=== PATIENT | female | born 1965 | race Two or more races ===

== ENCOUNTER 2017-07-20 17:41 | Emergency (ER) | payer MEDICAID ==
[~2017-07-20] VITALS: Ht 165.1 cm; Wt 167.8 kg
[2017-07-20 18:13] VITALS: BP 147/88
[2017-07-20] MEDS ORDERED: COLACE100 MG ORAL (18:24)
[2017-07-20] MEDS ORDERED: HYDROCHLOROTHIA25 MG ORAL (18:24)
--- NOTE | 2017-07-20 18:40 | Emergency Room Report ---
History of Present Illness General Chief Complaint: General Complaint Source: Patient Present Illness HPI Patient is a 52-year-old female who presented after increased bilateral knee pain. Patient was having gradual onset of symptoms. Patient prior history of this. She had previous a been told that she had a abdominal hernia. The patient was the not having any vomiting. She reports having the increasing size of upper abdominal mass. The patient had been having regular bowel movements. Patient states that she had been not having any change in symptoms. Allergies: Coded Allergies: No Known Allergies (Unverified , 07/20/17) Patient History Reviewed Nursing Documentation: PMH: Agreed; PSxH: Agreed Nursing Documentation-PM Past Medical History: No Stated History Review of Systems All Other Systems: negative except mentioned in HPI Physical Exam Vital Signs Date Time Temp Pulse Resp B/P (MAP) Pulse Ox O2 Delivery O2 Flow Rate FiO2 07/20/17 18:05 98.3 89 22 147/88 91 Room Air 98.2 General Appearance: well appearing, no apparent distress, GCS 15, obese, Chronically Ill Head: normocephalic, atraumatic ENT: hearing grossly normal, normal voice Neck: full range of motion, supple Respiratory: no respiratory distress, speaking full sentences Cardiovascular #1: normal inspection, edema Gastrointestinal: normal inspection, normal bowel sounds, non tender, soft Musculoskeletal: normal inspection, no calf tenderness Neurologic: normal inspection, alert, oriented x3, responsive, auricular acupuncturist III-XII nml as tested, normal gait Psychiatric: mood/affect normal Skin: no rash Medical Decision Making Diagnostic Impression: Primary Impression: Arthritis Additional Impression: Abdominal pain ER Course Patient presented for abdominal pain. Differential diagnoses included ischemic bowel, appendicitis, perforated viscus, abdominal aortic aneurysm, inferior myocardial infarction, viral gastroenteritis. Patient has a benign exam and does not appear to require any further imaging or laboratory testing at this time. The patient's pain appears to be chronic. The patient appears to have chronic abdominal wall hernia which does not appear to be incarcerated or strangulated.The patient denies any change in her symptoms. Patient was given prescription for hydrochlorothiazideShe was also given for stool softeners. The patient was given outpatient referral. The patient was advised to attempt weight loss for her arthritis. The patient is advised to follow up with primary care doctor in 1-2 days. Patient is advised to return if any worsening condition or if any changes in status that are concerning. This report is dictated with [employer] cloth checker software which may occasionally lead to discrepancies related to use of this software. Last Vital Signs Date Time Temp Pulse Resp B/P (MAP) Pulse Ox O2 Delivery O2 Flow Rate FiO2 07/20/17 18:13 98.2 22 147/88 91 Room Air 98.2 07/20/17 18:05 89 Status: unchanged Disposition: HOME, SELF-CARE Condition: Stable Scripts Hydrochlorothiazide* (HYDROCHLOROTHIAZIDE*) 25 Mg Tablet 25 MG ORAL DAILY, #28 TAB Prov: David Perez MD 07/20/17 Docusate Sodium* (COLACE*) 100 Mg Capsule 100 MG ORAL TWICE A DAY, #60 CAP Prov: David Perez MD 07/20/17 Patient Instructions: Abdominal Pain, Adult, Hypertension David Perez MD Jul 20, 2017 18:40
[2017-07-20 18:58] VITALS: BP 147/88
== END 2017-07-20 18:59 | disposition home or self-care (01) ==
LOC: EMR 18:22
DX: R10.9 Unspecified abdominal pain (principal); M25.562 Pain in left knee; M25.561 Pain in right knee; M19.90 Unspecified osteoarthritis, unspecified site; E66.9 Obesity, unspecified; Z68.44 Body mass index [BMI] 60.0-69.9, adult
CPT/HCPCS: 99284

== ENCOUNTER 2017-07-25 18:51 | Emergency (ER) | payer MEDICAID ==
[~2017-07-25] VITALS: Ht 165.1 cm; Wt 145.1 kg
[~2017-07-25 18:51] MED LIST: COLACE100 MG ORAL; HYDROCHLOROTHIA25 MG ORAL
[2017-07-25 19:22] VITALS: BP 77/103
[2017-07-25] MEDS ORDERED: Tetanus/Diptheria/Pertussis Vaccine 0.5ml Syr IM ONE (19:45)
--- NOTE | 2017-07-25 19:53 | Emergency Room Report ---
History of Present Illness General Chief Complaint: Skin Rash/Abscess Source: Patient Present Illness HPI 52-year-old female presents emergency department for treatment for possible scabies as one of her also told members was recently diagnosed with scabies. Patient denies insect bites, itching, rashes. She denies fevers or chills. Denies recent travel. She states he is not up-to-date with his tetanus and needs booster. Denies CP, Palpitations, LOC, AMS, dizziness, Changes in Vision , Sensation, paresthesias, or a sudden severe headache. Allergies: Coded Allergies: No Known Allergies (Unverified , 07/20/17) Patient History Past Medical History: see triage record Past Surgical History: none Pertinent Family History: none Reviewed Nursing Documentation: PMH: Agreed; PSxH: Agreed Nursing Documentation-PMH Hx Hypertension: Yes Review of Systems All Other Systems: negative except mentioned in HPI Physical Exam Vital Signs Date Time Temp Pulse Resp B/P (MAP) Pulse Ox O2 Delivery O2 Flow Rate FiO2 07/25/17 19:12 98.5 85 15 77/103 96 Room Air 98.4 Sp02 EP Interpretation: reviewed, normal General Appearance: no apparent distress, alert, GCS 15, non-toxic Head: normocephalic, atraumatic Eyes: bilateral eye normal inspection, bilateral eye PERRL ENT: hearing grossly normal, no angioedema, normal voice, other - no swelling of the lips or tongue Neck: full range of motion Respiratory: chest non-tender, lungs clear, normal breath sounds, no rhonchi, no wheezing, speaking full sentences Cardiovascular #1: regular rate, rhythm Musculoskeletal: back normal, gait/station normal, normal range of motion, non- tender Neurologic: alert, oriented x3, responsive, motor strength/tone normal, sensory intact, speech normal, grossly normal Psychiatric: judgement/insight normal Skin: normal color, no rash, warm/dry, well hydrated Lymphatic: no adenopathy Medical Decision Making PA Attestation Dr. dias is my supervising Physician whom patient management has been discussed with. Diagnostic Impression: Primary Impression: Encounter for medical screening examination ER Course 52-year-old female presents emergency department for treatment for possible scabies as one of her also told members was recently diagnosed with scabies. Patient denies insect bites, itching, rashes. She denies fevers or chills. Denies recent travel. She states he is not up-to-date with his tetanus and needs booster. Denies CP, Palpitations, LOC, AMS, dizziness, Changes in Vision , Sensation, paresthesias, or a sudden severe headache. Ddx considered but are not limited to cellulitis, scabies, shingles, varicella, dermatitis, urticaria, eczema, tinea, viral exanthem, SJS Vital signs: are WNL, pt. is afebrile H&PE are most consistent with Normal medical Screening Exam. no evidence of rash ,infection, infestation or anaphylaxis. ORDERS: none required at this time, the diagnosis is clinical ED INTERVENTIONS: -Tdap -D/w pt. and family members who are all present that prophylactic treatment is inappropriate for an ED complaint. d/w Family member "Agatha" who made pt. and other family members come to the ED, and checked in herself as well That she needs to follow up with PCP, Certification Technician, or [facility]. Respectfully did not mention psych. however parasitosis is a very likely diagnosis. DISCHARGE: At this time pt. is stable for d/c to home. Will provide printed patient care instructions, and any necessary prescriptions. Care plan and follow up instructions have been discussed with the patient prior to discharge. Last Vital Signs Date Time Temp Pulse Resp B/P (MAP) Pulse Ox O2 Delivery O2 Flow Rate FiO2 07/25/17 19:22 98.4 15 77/103 96 Room Air 98.4 07/25/17 19:12 85 Disposition: HOME, SELF-CARE Condition: Stable Scripts Permethrin* (ELIMITE*) 60 Gm Cream..g. 1 APPLIC TOPIC ONCE, #60 GM 0 Refills Apply cream from head to toe; leave on for 8-14 hours before washing off with water; may reapply in 1 week if live mites appear. Prov: Stephanie Yañez 07/25/17 Ivermectin (Ivermectin) 3 Mg Tablet 4 TAB PO ONCE, #4 TAB Prov: Stephanie Yañez 07/25/17 Patient Instructions: Medical Screening Exam Additional Instructions: Take medications as directed. Follow up with a Primary Care Provider in 3-5 days, even if your symptoms have resolved. --Please review list of primary care clinics, if you do not already have a primary care provider Return sooner to ED if new symptoms occur, or current symptoms become worse. - Please note that this Emergency Department Report was dictated using Your [employer] Show[employer] manager technology software, occasionally this can lead to erroneous entry secondary to interpretation by the dictation equipment. Stephanie Yañez Jul 25, 2017 19:53
[2017-07-25] MEDS ORDERED: PERMETHRIN60 GM TOPIC (19:54)
[2017-07-25] MEDS ORDERED: IVERMECTIN3 MG PO (19:54)
[2017-07-25 20:05] VITALS: BP 77/103
== END 2017-07-25 20:05 | disposition home or self-care (01) ==
LOC: EMR 19:05
DX: Z20.89 Contact with and (suspected) exposure to other communicable diseases (principal); Z23 Encounter for immunization; I10 Essential (primary) hypertension
CPT/HCPCS: 90471; 90715; 99283

== ENCOUNTER 2017-09-21 18:00 | Emergency (ER) | payer MEDICAID ==
[~2017-09-21] VITALS: Ht 162.6 cm; Wt 136.1 kg
[~2017-09-21 18:00] MED LIST changes: +IVERMECTIN3 MG PO; +PERMETHRIN60 GM TOPIC
[2017-09-21] MEDS ORDERED: UNOBMED (18:13)
--- NOTE | 2017-09-21 18:56 | Emergency Room Report ---
History of Present Illness General Chief Complaint: Edema Source: Patient Present Illness HPI 52-year-old female presents ED for evaluation. Complaining of bilateral leg swelling times one week. History of hypertension. States she takes losartanhydrochlorothiazide pill but states she ran out one week ago. States she has had episodes of shortness of breath but none at this time. Denies chest pain. Denies fevers or chills. Denies any pain in her legs. No other aggravating relieving factors. Denies any other associated symptoms Allergies: Coded Allergies: No Known Allergies (Unverified , 07/20/17) Patient History Past Medical History: HTN Past Surgical History: none Pertinent Family History: none Social History: Denies: smoking, alcohol use, drug use Now: No Immunizations: UTD Reviewed Nursing Documentation: PMH: Agreed; PSxH: Agreed Nursing Documentation-PMH Hx Hypertension: Yes Review of Systems All Other Systems: negative except mentioned in HPI Physical Exam Vital Signs Date Time Temp Pulse Resp B/P (MAP) Pulse Ox O2 Delivery O2 Flow Rate FiO2 09/21/17 18:07 99.1 76 25 145/80 94 Room Air 99.1 Sp02 EP Interpretation: reviewed, normal General Appearance: no apparent distress, alert, GCS 15, non-toxic, obese Head: normocephalic, atraumatic Eyes: bilateral eye normal inspection, bilateral eye PERRL ENT: hearing grossly normal, normal pharynx, no angioedema, normal voice Neck: full range of motion, supple/symm/no masses Respiratory: chest non-tender, lungs clear, normal breath sounds, speaking full sentences Cardiovascular #1: regular rate, rhythm, no edema Cardiovascular #2: 2+ carotid (R), 2+ carotid (L), 2+ radial (R), 2+ radial (L) , 2+ dorsalis pedis (R), 2+ dorsalis pedis (L) Gastrointestinal: normal bowel sounds, non tender, soft, non-distended, no guarding, no rebound Rectal: deferred Genitourinary: normal inspection, no CVA tenderness Musculoskeletal: back normal, gait/station normal, normal range of motion, non- tender Neurologic: alert, oriented x3, responsive, motor strength/tone normal, sensory intact, speech normal Psychiatric: judgement/insight normal, memory normal, mood/affect normal, no suicidal/homicidal ideation Reflexes: 3+ bicep (R), 3+ bicep (L), 3+ tricep (R), 3+ tricep (L), 3+ knee (R) , 3+ knee (L) Skin: other - 1+ pitting edema bilateral LEs Lymphatic: no adenopathy Medical Decision Making Diagnostic Impression: Primary Impression: Edema Qualified Codes: R60.9 - Edema, unspecified ER Course Hospital Course 52 yo F presents to ED c/o bilateral leg swelling, episodic SOB Differential diagnoses include: Rib fracture, MS/unstable angina, CHF Clinical course Patient placed on stretcher. After initial history and physical I ordered labs , EKG, chest x-ray. labs reviewed- all electrolytes normal, troponins negative, no leukocytosis, hemoglobin/hematocrit stable, BNP ok EKG - NSr, no acute ischemic changes interpreted by me Chest x-ray-some cardiomegaly, no evidence of fluid overload or significant pulmonary congestion Patient observed in ED with stable vitals. I discussed findings with the patient. Patient safe for discharge pending close outpatient follow-up. I will refill her hydrochlorothiazide/losartan I. I feel this is a highly complex case requiring extensive working including EKG/Rhythm strip, Xray/CT/US, Blood/urine lab work, repeat exams while in ED, and administration of strong opiates/narcotics for pain control, admission to hospital or close patient follow up. Diagnosis - edema Stable and discharged to home with Rx Losartan-HCTZ. Instructed to followup with PMD. Return to ED if symptoms recur or worsen Labs Test 09/21/17 18:50 White Blood Count 8.1 K/UL (4.8-10.8) Red Blood Count 4.97 M/UL (4.20-5.40) Hemoglobin 15.1 G/DL (12.0-16.0) Hematocrit 45.2 % (37.0-47.0) Mean Corpuscular Volume 91 FL (80-99) Mean Corpuscular Hemoglobin 30.4 PG (27.0-31.0) Mean Corpuscular Hemoglobin Concent 33.4 G/DL (32.0-36.0) Red Cell Distribution Width 12.6 % (11.6-14.8) Platelet Count 253 K/UL (150-450) Mean Platelet Volume 6.7 FL (6.5-10.1) Neutrophils (%) (Auto) 48.7 % (45.0-75.0) Lymphocytes (%) (Auto) 39.0 % (20.0-45.0) Monocytes (%) (Auto) 6.6 % (1.0-10.0) Eosinophils (%) (Auto) 4.9 % (0.0-3.0) Basophils (%) (Auto) 0.7 % (0.0-2.0) Sodium Level 143 MMOL/L (136-145) Potassium Level 3.6 MMOL/L (3.5-5.1) Chloride Level 103 MMOL/L (98-107) Carbon Dioxide Level 32 MMOL/L (21-32) Anion Gap 8 mmol/L (5-15) Blood Urea Nitrogen 12 mg/dL (7-18) Creatinine 0.8 MG/DL (0.55-1.30) Estimat Glomerular Filtration Rate > 60 mL/min (>60) Glucose Level 145 MG/DL (74-106) Calcium Level 9.3 MG/DL (8.5-10.1) Total Bilirubin 0.2 MG/DL (0.2-1.0) Aspartate Amino Transf (AST/SGOT) 30 U/L (15-37) Alanine Aminotransferase (ALT/SGPT) 49 U/L (12-78) Alkaline Phosphatase 98 U/L (46-116) Total Creatine Kinase 66 U/L (26-308) Creatine Kinase MB 0.6 NG/ML (0.0-3.6) Creatine Kinase MB Relative Index 0.9 Troponin I 0.000 ng/mL (0.000-0.056) Pro-B-Type Natriuretic Peptide 70 pg/mL (0-125) Total Protein 7.8 G/DL (6.4-8.2) Albumin 3.3 G/DL (3.4-5.0) Globulin 4.5 g/dL Albumin/Globulin Ratio 0.7 (1.0-2.7) EKG Diagnostic Results Rate: normal Rhythm: NSR ST Segments: no acute changes ASA given to the pt in ED: No Rhythm Strip Diag. Results EP Interpretation: yes Rhythm: NSR, no PVC's, no ectopy Chest X-Ray Diagnostic Results Chest X-Ray Diagnostic Results : Chest X-Ray Ordered: Yes # of Views/Limited/Complete: 1 View Indication: Shortness of Breath EP Interpretation: Yes Interpretation: no consolidation, no effusion, no pneumothorax, no acute cardiopulmonary disease Impression: No acute disease Last Vital Signs Date Time Temp Pulse Resp B/P (MAP) Pulse Ox O2 Delivery O2 Flow Rate FiO2 09/21/17 18:07 99.1 76 25 145/80 94 Room Air 99.1 Status: improved Disposition: HOME, SELF-CARE Condition: Stable Scripts Losartan/Hydrochlorothiazide (LOSARTAN-HCTZ 100-25 MG TAB) 1 Each Tablet 1 TAB ORAL DAILY for 30 Days, TAB Prov: Matthew Meyers MD 09/21/17 Referrals: [facility],REFERRING (PCP) Matthew Meyers MD Sep 21, 2017 18:56
[2017-09-21 19:00] VITALS: BP 166/77
[2017-09-21 19:05] VITALS: BP 145/80
[2017-09-21 19:07] LABS: BASOPHILS % (AUTO) 0.7 % (0.0-2.0); EOSINOPHILS % (AUTO) 4.9 % (0.0-3.0); HEMATOCRIT 45.2 % (37.0-47.0); HEMOGLOBIN 15.1 G/DL (12.0-16.0); MEAN CORPUSCULAR VOLUME 91 FL (80-99); MONOCYTES % (AUTO) 6.6 % (1.0-10.0); NEUTROPHILS % (AUTO) 48.7 % (45.0-75.0); PLATELET COUNT 253 K/UL (150-450); RED BLOOD COUNT 4.97 M/UL (4.20-5.40); RED CELL DISTRIBUTION WIDTH 12.6 % (11.6-14.8); WHITE BLOOD COUNT 8.1 K/UL (4.8-10.8)
[2017-09-21 19:26] LABS: ANION GAP 8 mmol/L (5-15); BLOOD UREA NITROGEN 12 mg/dL (7-18); CALCIUM 9.3 MG/DL (8.5-10.1); CARBON DIOXIDE 32 MMOL/L (21-32); CHLORIDE 103 MMOL/L (98-107); CREATININE 0.8 MG/DL (0.55-1.30); POTASSIUM 3.6 MMOL/L (3.5-5.1); SODIUM 143 MMOL/L (136-145)
[2017-09-21 19:39] LABS: ALANINE AMINOTRANSFERASE 49 U/L (12-78); ALBUMIN 3.3 G/DL (3.4-5.0); ALBUMIN/GLOBULIN RATIO 0.7 (1.0-2.7); ALKALINE PHOSPHATASE 98 U/L (46-116); ASPARTATE AMINO TRANSFERASE 30 U/L (15-37); BILIRUBIN,TOTAL 0.2 MG/DL (0.2-1.0); CKMB 0.6 NG/ML (0.0-3.6); CREATINE KINASE 66 U/L (26-308)
--- NOTE | 2017-09-21 19:45 | Diagnostic Imaging Report ---
EXAM: XR Chest, 1 View CLINICAL HISTORY: SOB TECHNIQUE: Frontal view of the chest. COMPARISON: No relevant prior studies available. FINDINGS: Limitations: Limited due to body habitus. Lungs: Possible mild pulmonary vascular congestion. No focal consolidation. Pleural space: Unremarkable. No pneumothorax. Heart: Cardiomegaly. Mediastinum: Unremarkable. Bones/joints: Unremarkable. IMPRESSION: Possible mild pulmonary vascular congestion. No focal consolidation.
[2017-09-21] MEDS ORDERED: LOSARTAN-HCTZ1 EAC1 ORAL (19:50)
[2017-09-21 20:08] VITALS: BP 166/77
--- NOTE | 2017-09-28 00:56 | Cardiology Report ---
APPROVED REPORT EKG Measurement Heart [id number] VT [id number] [id number] Normal sinus rhythm Abnormal QRS-T angle, consider primary T wave abnormality Abnormal ECG
== END 2017-09-21 20:12 | disposition home or self-care (01) ==
LOC: EMR 18:25
DX: R60.9 Edema, unspecified (principal); I10 Essential (primary) hypertension
CPT/HCPCS: 36415; 71045; 80053; 82550; 82553; 83880; 84484; 85025; 93005; 99283

== ENCOUNTER 2018-04-19 17:14 | Emergency (ER) | payer MEDICAID ==
[~2018-04-19] VITALS: Ht 162.6 cm; Wt 136.1 kg
[~2018-04-19 17:14] MED LIST changes: +LOSARTAN-HCTZ1 EAC1 ORAL; +UNOBMED
--- NOTE | 2018-04-19 17:18 | NUR ---
ED Nurse Note: Called patient. Patient in waiting room, registering her son.
[2018-04-19 18:04] VITALS: BP 162/76
--- NOTE | 2018-04-19 18:05 | NUR ---
ED Nurse Note: pt walked in to ED due to SOB for last 3 weeks. intermiteent dry cough noted. 99.5 F at the bed side. skin hot to touch. respirations even and non-labored noted. 89% in RA. RN applied 2L o2 via NC. pt maintained >94% of pulse oximetry. per pt, feeling much better. breath sounds clear. no open wound noted. AAO x4. pt also c/o tripped and fell injury. c/o pain on left side of body. on clinical research monitor. called RT. will wait for the further order.
[2018-04-19] MEDS ORDERED: Ipratropium 0.02% Inh Soln 2.5ml UD HHN ONE (18:15)
[2018-04-19] MEDS ORDERED: Albuterol ud Inhalation HHN ONE (18:15)
[2018-04-19 18:25] LABS: BASOPHILS % (AUTO) 1.1 % (0.0-2.0); EOSINOPHILS % (AUTO) 1.7 % (0.0-3.0); HEMATOCRIT 44.7 % (37.0-47.0); HEMOGLOBIN 14.1 G/DL (12.0-16.0); LYMPHOCYTES % (AUTO) 21.6 % (20.0-45.0); MEAN CORPUSCULAR VOLUME 92 FL (80-99); NEUTROPHILS % (AUTO) 66.7 % (45.0-75.0); PLATELET COUNT 191 K/UL (150-450); RED BLOOD COUNT 4.88 M/UL (4.20-5.40); RED CELL DISTRIBUTION WIDTH 13.3 % (11.6-14.8); WHITE BLOOD COUNT 6.6 K/UL (4.8-10.8)
[2018-04-19 18:44] LABS: ANION GAP 7 mmol/L (5-15); BLOOD UREA NITROGEN 11 mg/dL (7-18); CALCIUM 8.8 MG/DL (8.5-10.1); CARBON DIOXIDE 27 MMOL/L (21-32); CHLORIDE 102 MMOL/L (98-107); CREATININE 1.1 MG/DL (0.55-1.30); POTASSIUM 3.8 MMOL/L (3.5-5.1); SODIUM 135 MMOL/L (136-145)
--- NOTE | 2018-04-19 18:49 | Diagnostic Imaging Report ---
EXAM: XR Chest, 1 View CLINICAL HISTORY: COUGH TECHNIQUE: Frontal view of the chest. COMPARISON: 09/21/2017 FINDINGS: Lungs: Persistent bilateral hilar prominence. No consolidation. Pleural space: Unremarkable. No pneumothorax. Heart: Stable cardiomediastinal silhouette. Mediastinum: See above. Bones/joints: No acute osseous abnormality. Tubes, lines and devices: Telemetry leads overlie the patient. IMPRESSION: No acute cardiopulmonary process.
[2018-04-19 18:58] LABS: ALANINE AMINOTRANSFERASE 52 U/L (12-78); ALBUMIN 3.3 G/DL (3.4-5.0); ALBUMIN/GLOBULIN RATIO 0.7 (1.0-2.7); ALKALINE PHOSPHATASE 80 U/L (46-116); ASPARTATE AMINO TRANSFERASE 51 U/L (15-37); BILIRUBIN,TOTAL 0.4 MG/DL (0.2-1.0); CKMB < 0.5 NG/ML (0.0-3.6); CREATINE KINASE 150 U/L (26-308)
[2018-04-19] MEDS ORDERED: cefTRIAXone 1 GM in NS 55 ML IV SCH (19:30)
[2018-04-19] MEDS ORDERED: Azithromycin 500 MG in NS 275 ML IV ONE (19:30)
[2018-04-19 20:00] VITALS: BP 180/87
[2018-04-19] MEDS ORDERED: LEVAQUIN750 MG ORAL (20:16)
[2018-04-19] MEDS ORDERED: ALBUTEROL SULF8.5 GM INH (20:16)
--- NOTE | 2018-04-19 20:26 | NUR ---
ED Nurse Note: pt states she wants to go home due to taking care of her son, ERMD notified.
[2018-04-19 21:50] VITALS: BP 186/97
--- NOTE | 2018-04-19 21:51 | NUR ---
ED Nurse Note: pt signed AMA, ERMD notified and signed the ama form, the risks and consequences given by ERMD, pt states she has to take care of her son and does not want to be admitted. pt vss, antibiotics finished, iv d/c, wrist band removed, pt advised to follow up with pcp or return to ed, pt d/c instruction and aftercare instruction w/ prescription given, pt verbalized understanding, left with all belongings, ambulatory w/ steady gait, accompanied by son.
--- NOTE | 2018-04-19 23:00 | Emergency Room Report ---
History of Present Illness General Chief Complaint: Dyspnea/Respdistress Source: Patient Present Illness HPI Patient presents emergency department today complaint cough congestion and shortness of breath. Patient states her symptoms have been going on for about 2 weeks now. She has subjective fevers and chills. Denies any other complaints patient's noted be severe. Patient is morbidly obese as well.No other modifying factors. No other associated signs and symptoms. No other complaints were noted. Allergies: Coded Allergies: No Known Allergies (Unverified , 07/20/17) Patient History Past Medical History: HTN Past Surgical History: none Pertinent Family History: none Social History: Denies: smoking, alcohol use, drug use Reviewed Nursing Documentation: PMH: Agreed; PSxH: Agreed Nursing Documentation-PMH Past Medical History: No History, Except For Hx Hypertension: Yes Review of Systems All Other Systems: negative except mentioned in HPI Physical Exam Vital Signs Date Time Temp Pulse Resp B/P (MAP) Pulse Ox O2 Delivery O2 Flow Rate FiO2 04/19/18 17:36 100.4 98 16 169/90 88 Room Air 04/19/18 18:04 2.0 04/19/18 18:34 28 Sp02 EP Interpretation: reviewed, abnormal - Low General Appearance: normal inspection, well appearing, no apparent distress, alert Head: atraumatic Eyes: bilateral eye normal inspection ENT: normal ENT inspection, hearing grossly normal, normal voice Neck: normal inspection, full range of motion, supple, no bony tend Respiratory: respiratory distress - Mild, decreased breath sounds, wheezing, expiration, inspiration Cardiovascular #1: regular rate, rhythm, no edema Gastrointestinal: normal inspection, normal bowel sounds, non tender, soft, no guarding, no hernia Genitourinary: no CVA tenderness Musculoskeletal: normal inspection, back normal, normal range of motion Neurologic: normal inspection, alert, responsive, speech normal Psychiatric: normal inspection, judgement/insight normal, mood/affect normal Skin: normal inspection, normal color, no rash Procedures Critical Care Time Critical Care Time Patient had a critical medical condition which untreated could potentially result in life or limb threatening injury. Total critical care time excluding procedures was approximately 35 minutes. Medical Decision Making Diagnostic Impression: Primary Impression: Pneumonia Additional Impressions: Dyspnea Respiratory distress Hypoxia ER Course Patient presents emergency department today complaining of shortness of breath. Differential diagnoses include acute pneumonia, CHF, acute coronary syndrome, pneumothorax, asthma, COPD flare, just to name a few.Given the severity of the patient's presentation I felt this is a highly complex patient. This patient required extensive workup. Patient's laboratory workup was not impressive. Chest x-ray showed however evidence of infiltrate. Given the patient's hypoxic with evidence infiltrate shortness breath with poor underlying medical condition I felt the patient require admission. Patient however declined to be admitted she signed out the hospital against medical advise. She understands risks of signing out AMA. Patient was given one dose antibiotics and a prescription for antibiotics. Advise return emergency room for any worsening symptoms and as needed. Advise return emergency room if she changes her mind wants be admitted. Labs Test 04/19/18 18:16 White Blood Count 6.6 K/UL (4.8-10.8) Red Blood Count 4.88 M/UL (4.20-5.40) Hemoglobin 14.1 G/DL (12.0-16.0) Hematocrit 44.7 % (37.0-47.0) Mean Corpuscular Volume 92 FL (80-99) Mean Corpuscular Hemoglobin 28.9 PG (27.0-31.0) Mean Corpuscular Hemoglobin Concent 31.5 G/DL (32.0-36.0) Red Cell Distribution Width 13.3 % (11.6-14.8) Platelet Count 191 K/UL (150-450) Mean Platelet Volume 6.7 FL (6.5-10.1) Neutrophils (%) (Auto) 66.7 % (45.0-75.0) Lymphocytes (%) (Auto) 21.6 % (20.0-45.0) Monocytes (%) (Auto) 9.0 % (1.0-10.0) Eosinophils (%) (Auto) 1.7 % (0.0-3.0) Basophils (%) (Auto) 1.1 % (0.0-2.0) Sodium Level 135 MMOL/L (136-145) Potassium Level 3.8 MMOL/L (3.5-5.1) Chloride Level 102 MMOL/L (98-107) Carbon Dioxide Level 27 MMOL/L (21-32) Anion Gap 7 mmol/L (5-15) Blood Urea Nitrogen 11 mg/dL (7-18) Creatinine 1.1 MG/DL (0.55-1.30) Estimat Glomerular Filtration Rate 51.8 mL/min (>60) Glucose Level 123 MG/DL (74-106) Lactic Acid Level 1.50 mmol/L (0.4-2.0) Calcium Level 8.8 MG/DL (8.5-10.1) Total Bilirubin 0.4 MG/DL (0.2-1.0) Aspartate Amino Transf (AST/SGOT) 51 U/L (15-37) Alanine Aminotransferase (ALT/SGPT) 52 U/L (12-78) Alkaline Phosphatase 80 U/L (46-116) Total Creatine Kinase 150 U/L (26-308) Creatine Kinase MB < 0.5 NG/ML (0.0-3.6) Creatine Kinase MB Relative Index 0.3 Troponin I 0.000 ng/mL (0.000-0.056) Total Protein 7.9 G/DL (6.4-8.2) Albumin 3.3 G/DL (3.4-5.0) Globulin 4.6 g/dL Albumin/Globulin Ratio 0.7 (1.0-2.7) EKG Diagnostic Results Rate: normal Rhythm: NSR ST Segments: no acute changes Rhythm Strip Diag. Results EP Interpretation: yes Rate: 90s Rhythm: NSR, no PVC's, no ectopy Chest X-Ray Diagnostic Results Chest X-Ray Diagnostic Results : Chest X-Ray Ordered: Yes # of Views/Limited/Complete: 1 View Indication: Shortness of Breath EP Interpretation: Yes Interpretation: no effusion, no pneumothorax, other - Left-sided consolidation Impression: Other - Pneumonia Electronically Signed by: Electronically signed by Isaac Lizarraga MD Last Vital Signs Date Time Temp Pulse Resp B/P (MAP) Pulse Ox O2 Delivery O2 Flow Rate FiO2 04/19/18 21:50 98.7 87 18 186/97 98 Nasal Cannula 3.0 04/19/18 20:00 28 Status: improved Disposition: AGAINST MEDICAL ADVICE Condition: Serious Scripts Albuterol Sulfate* (ALBUTEROL SULFATE MDI*) 8.5 Gm Hfa.aer.ad 2 PUFF INH Q4H PRN for cough/wheezing, #1 EA 0 Refills Prov: Isaac Lizarraga MD 04/19/18 Levofloxacin* (LEVAQUIN*) 750 Mg Tablet 750 MG ORAL DAILY for 5 Days, TAB Prov: Isaac Lizarraga MD 04/19/18 Patient Instructions: Acute Bronchitis, [id number], Community-Acquired Pneumonia, Adult Additional Instructions: You are leaving hospital against medical advise. This can result in worsening of condition or severe disability and . You are capable able making decisions and this is her decision despite my asking you to stay. If you decided to change her mind you are welcome to come back to the hospital for further evaluation and possible admission. Please follow up urgently with her primary care physician as soon as possible. Isaac Lizarraga MD Apr 19, 2018 23:00
== END 2018-04-19 21:50 | disposition left against medical advice (07) ==
LOC: EMR 18:11
DX: J18.9 Pneumonia, unspecified organism (principal); R06.03 Acute respiratory distress; R09.02 Hypoxemia; I10 Essential (primary) hypertension
CPT/HCPCS: 36415; 71045; 80053; 82550; 82553; 83605; 84484; 85025; 87040; 93005; 94640; 96365; 96368; 99291; J0456; J0696; J7050

== ENCOUNTER 2018-04-25 18:53 | Emergency (ER) | payer MEDICAID ==
[~2018-04-25] VITALS: Ht 162.6 cm; Wt 136.1 kg
[~2018-04-25 18:53] MED LIST changes: +ALBUTEROL SULF8.5 GM INH; +LEVAQUIN750 MG ORAL
[2018-04-25 19:30] VITALS: BP 153/85
--- NOTE | 2018-04-25 19:35 | NUR ---
ED Nurse Note: RECIEVED PT FROM HOME ON [facility], ALERT AND ORIENTED X 4, PT HER WITH C/O ABDOMINAL PAIN, MID ANTERIOR AREA, PT WAS RECENTLY TREATED FOR PNA, STATES ABD PAIN WORSENED, PT DENIES CP, SOB, AND ALSO HAS INTERMITTENT NAUSEA, PT WITH SON AT BEDSIDE, ASSISTED WITH GOWNING, WILL RESUME CARE ORDERED AND CONTINUE TO CLOSELY MONITOR.
[2018-04-25] MEDS ORDERED: Isovue-300 100ml vial INJ PRN (19:45)
--- NOTE | 2018-04-25 20:05 | NUR ---
ED Nurse Note: PT LEAVING HOSPITAL AMA, PT IS MORBID OBESE, CT MACHING HERE CAN NOT ACCOMODATE AND PT DECIDED TO GO TO [facility] MD SPOKE WITH PT AND SON INR EGARDS TO IMPORTANCE OF GOING, PT SIGNED AMA FORM FROM HERE, PT LEAVING FACILITY AWAKE, ALERT AND ORIENTED X 4, AMBULATING, NO SOB OR LABORED BREATHING, WITH SON AND STATES GOING TO HOSPITAL RIGHT NOW, [place] REMOVED, ALL FORMS SIGNED, NAD NOTED DURING D/C.
[2018-04-25 20:10] VITALS: BP 153/85
--- NOTE | 2018-04-25 20:10 | Consultation ---
History of Present Illness General Date patient seen: Apr 25, 2018 Present Illness HPI This is a 52-year-old female with multiple medical comorbidities who presented to the emergency department at [facility] with complaints of upper respiratory discomfort and worsening abdominal pain. Patient states that she was recently here and diagnosed with a lung infection and has been home taking care of herself when proximate 3 days ago began to identify some abdominal discomfort. Over the past 3 days discomfort has worsened and she decided to come to the emergency department for evaluation. Describes pain as a sharp generalized abdominal pain that is worse with movement palpation and pressure. States that she has been coughing a lot from her upper respiratory symptoms and that causes the pain to worsen as well. Has not been able to tolerate diet but denies any nausea or vomiting. States that last bowel movement was 3 PM today and was soft without any blood or other abnormalities. On examination patient was noted to have abdominal tenderness and therefore surgery was called to evaluate and assist with care. Patient seen, patient evaluated, care plan discussed with patient and family member who is at the bedside Allergies: Coded Allergies: No Known Allergies (Unverified , 07/20/17) Medication History Scheduled Docusate Sodium* (Colace*), 100 MG ORAL TWICE A DAY Hydrochlorothiazide* (Hydrochlorothiazide*), 25 MG ORAL DAILY Ivermectin (Ivermectin), 4 TAB PO ONCE Levofloxacin* (Levaquin*), 750 MG ORAL DAILY Losartan/Hydrochlorothiazide (Losartan-Hctz 100-25 Mg Tab), 1 TAB ORAL DAILY Permethrin* (Elimite*), 1 APPLIC TOPIC ONCE Scheduled PRN Albuterol Sulfate* (Albuterol Sulfate Mdi*), 2 PUFF INH Q4H PRN for cough/ wheezing Miscellaneous Medications Unable to Obtain Medications (Unable To Obtain Meds), (Reported) Patient History History Provided By: Patient, Family Member, Medical Record, PMD Healthcare decision maker Resuscitation status Advanced Directive on File Past Medical/Surgical History Past Medical/Surgical History: (1) Arthritis (2) Edema (3) Dyspnea (4) Respiratory distress (5) Pneumonia (6) Abdominal pain Review of Systems Review of Symptoms General ROS: no weight loss or fever Psychological ROS: no depression or mood changes, no memory loss Ophthalmic ROS: no visual changes or eye irritation ENT ROS: no nasal congestion, hearing loss, dizziness Allergy and Immunology ROS: no allergic symptoms or urticaria Hematological and Lymphatic ROS: no swollen glands, unusual bleeding or bruising Endocrine ROS: no polyuria, polydipsia, weight changes, temperature intolerance Respiratory ROS: cough, shortness of breath, wheezing Cardiovascular ROS: no chest pain or dyspnea on exertion Gastrointestinal ROS: abdominal pain, no bright red blood in stool. Musculoskeletal ROS: no myalgias or arthralgias Neurological ROS: no TIA or stroke symptoms Dermatological ROS: no new or changing skin lesions, rashes or pruritis Physical Exam Physical Exam General appearance: alert, cooperative, no distress, appears stated age Head: Normocephalic, without obvious abnormality, atraumatic Eyes: conjunctivae/corneas clear. PERRL, EOM's intact. Fundi benign Throat: Lips, mucosa, and tongue normal. Teeth and gums normal Neck: supple, symmetrical, trachea midline, no adenopathy, thyroid: not enlarged, symmetric, no tenderness/mass/nodules, no carotid bruit and no JVD Lungs: breath sounds bilaterally Heart: regular rate and rhythm, S1, S2 normal, no murmur, click, rub or gallop Abdomen: soft, tender. Bowel sounds normal. very obese, tender all quadrants, no rebound, mild guarding Extremities: extremities normal, atraumatic, no cyanosis or edema Pulses: 2+ and symmetric Skin: Skin color, texture, turgor normal. No rashes or lesions Neurologic: Grossly normal Last 24 Hour Vital Signs Date Time Temp Pulse Resp B/P (MAP) Pulse Ox O2 Delivery O2 Flow Rate FiO2 04/25/18 19:08 98.2 85 20 153/85 90 Room Air Height (Feet): 5 Height (Inches): 4.00 Weight (Pounds): 300 Medications Current Medications Medications (Trade) Dose Ordered Sig/Pawel Route PRN Reason Start Time Stop Time Status Last Admin Dose Admin Iopamidol (Isovue-300 100ml) 100 ml NOW PRN INJ Radiology Procedure 04/25/18 19:45 Sodium Chloride 500 ml @ 999 mls/hr Q31M ONCE IV 04/25/18 19:35 04/25/18 20:05 Assessment/Plan Problem List: (1) Abdominal pain Assessment & Plan: This is a 52-year-old female with generalized abdominal pain for the past 3 days is been worsening without associated nausea vomiting fever chills. Patient has been having normal bowel movements. Febrile, hemodynamically stable, labs pending. A long discussion was had with patient family member at bedside regarding her condition and the above findings. Differential diagnosis includes possible abdominal cramping, enteritis, colitis, bowel perforation, gastritis, appendicitis. Given the vast potential differentials with her presenting symptoms a CT abdomen and pelvis with IV and oral contrast is indicated and recommended. Unfortunately patient is 136 kg which is greater than the capacity of the CT scan that we presently have at this facility. I have discussed this finding with the patient and my strong recommendation to have a CT scan done. I explained to her that we can and will be happy to admit her with monitoring, serial abdominal examinations, further workup, but, patient and family have decided that they would like to go to a different facility where there would be a CT scan to accommodate her size. I explained to her that given her symptoms and examination that further workup is necessary and that I do not recommend she go home. If patient and family change their mind would recommend admitting for serial examinations. Thank you for allowing me to participate in patient's care. ICD Codes: R10.9 - Unspecified abdominal pain SNOMED: [id number] Jeffry Castle Apr 25, 2018 20:10
--- NOTE | 2018-04-26 14:53 | Emergency Room Report ---
History of Present Illness General Chief Complaint: Upper Respiratory Illness Source: Patient, Family Member, Medical Record, PMD Present Illness HPI 52-year-old female resents ED for evaluation. Patient complaining of abdominal pain which started 3 days ago. Epigastric, sharp, 10 out of 10, nonradiating. Denies fevers or chills. Denies chest pain or shortness of breath. No other aggravating relieving factors. Denies any other associated symptoms Allergies: Coded Allergies: No Known Allergies (Unverified , 07/20/17) Patient History Past Medical History: HTN Past Surgical History: none Pertinent Family History: none Social History: Denies: smoking, alcohol use, drug use Last Menstrual Period: na Now: No Immunizations: UTD Reviewed Nursing Documentation: PMH: Agreed; PSxH: Agreed Nursing Documentation-PMH Past Medical History: No History, Except For Hx Hypertension: Yes Review of Systems All Other Systems: negative except mentioned in HPI Physical Exam Vital Signs Date Time Temp Pulse Resp B/P (MAP) Pulse Ox O2 Delivery O2 Flow Rate FiO2 04/25/18 19:08 98.2 85 20 153/85 90 Room Air Sp02 EP Interpretation: reviewed, normal General Appearance: alert, GCS 15, non-toxic, obese Head: normocephalic, atraumatic Eyes: bilateral eye normal inspection, bilateral eye PERRL ENT: hearing grossly normal, normal pharynx, no angioedema, normal voice Neck: full range of motion, supple/symm/no masses Respiratory: chest non-tender, lungs clear, normal breath sounds, speaking full sentences Cardiovascular #1: regular rate, rhythm, no edema Cardiovascular #2: 2+ carotid (R), 2+ carotid (L), 2+ radial (R), 2+ radial (L) , 2+ dorsalis pedis (R), 2+ dorsalis pedis (L) Gastrointestinal: normal bowel sounds, soft, non-distended, no guarding, no rebound, tenderness - epigastric Rectal: deferred Genitourinary: normal inspection, no CVA tenderness Musculoskeletal: back normal, gait/station normal, normal range of motion, non- tender Neurologic: alert, oriented x3, responsive, motor strength/tone normal, sensory intact, speech normal Psychiatric: judgement/insight normal, memory normal, mood/affect normal, no suicidal/homicidal ideation Reflexes: 3+ bicep (R), 3+ bicep (L), 3+ tricep (R), 3+ tricep (L), 3+ knee (R) , 3+ knee (L) Skin: normal color, no rash, warm/dry, well hydrated Lymphatic: no adenopathy Medical Decision Making Diagnostic Impression: Primary Impression: Abdominal pain Qualified Codes: R10.84 - Generalized abdominal pain ER Course Hospital Course 52-year-old F presents to ED with abdominal pain Differential diagnosis includes-appendicitis, cholecystitis, small bowel obstruction, gastritis, Clinical course Patient placed on stretcher. After initial history, physical exam reveals an obese female in no acute distress. Abdomen is tender. No guarding or rebound. Surgery Dr. Castle at bedside to evaluate patient. Agrees that patient would require workup including CT imaging. Patient has weight of 136 kg which is above our limit for CT imaging Discussed with patient that she would require further workup. discussed option of lab draw and serial abdominal exams and admission. Patient states she would prefer to go to a tertiary hospital where CT could accommodate her Patient states she wishes to go home. Understands the risks of leaving. Patient has competency to make her own decisions. Signed AMA form. I feel this is a highly complex case requiring extensive working including EKG/ Rhythm strip, Xray/CT/US, Blood/urine lab work, repeat exams while in ED, and administration of strong opiates/narcotics for pain control, admission to hospital or close patient follow up. Diagnosis - abdominal pain patient left AMA Last Vital Signs Date Time Temp Pulse Resp B/P (MAP) Pulse Ox O2 Delivery O2 Flow Rate FiO2 04/25/18 20:10 98.2 20 153/85 90 Room Air 04/25/18 19:30 85 Status: unchanged Disposition: AGAINST MEDICAL ADVICE Condition: Stable Referrals: [facility],REFERRING (PCP) Additional Instructions: patient needs to have CT Scan that can accomodate her weight Matthew Meyers MD Apr 26, 2018 14:53
== END 2018-04-25 20:16 | disposition left against medical advice (07) ==
LOC: EMR 19:35
DX: R10.9 Unspecified abdominal pain (principal); I10 Essential (primary) hypertension
CPT/HCPCS: 96374; 99284

== ENCOUNTER 2018-12-27 18:14 | Emergency (ER) | payer MEDICAID ==
[~2018-12-27] VITALS: Ht 162.6 cm; Wt 145.1 kg
[2018-12-27 18:31] VITALS: BP 164/98
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
[2018-12-27] MEDS ORDERED: Tetanus/Diptheria/Pertussis IM ONE (18:45)
[2018-12-27] MEDS ORDERED: SILVADENE20 GM TP (19:02)
[2018-12-27] MEDS ORDERED: ACETAMINOPHEN-1 EAC1 ORAL (19:02)
--- NOTE | 2018-12-27 19:06 | NUR ---
HAND-OFF: Report given to Madison ZENDEJAS.
[2018-12-27 19:08] VITALS: BP 164/98
--- NOTE | 2018-12-27 19:08 | NUR ---
ER DISCHARGE NOTE: Patient is cleared to be discharged per ERMD, pt is aox4, on room air, with stable vital signs. pt was given dc and prescription instructions, pt was able to verbalize understanding, pt id band removed without complications. pt is able to ambulate with steady gait. pt took all belongings.
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
== END 2018-12-27 19:08 | disposition home or self-care (01) ==
LOC: EMR 18:42
DX: T21.22XA Burn of second degree of abdominal wall, initial encounter (principal); I10 Essential (primary) hypertension; K46.9 Unspecified abdominal hernia without obstruction or gangrene; X11.8XXA Contact with other hot tap-water, initial encounter; Y93.9 Activity, unspecified
CPT/HCPCS: 16020; 90471; 90715; Z7502; 99283

== ENCOUNTER 2020-01-07 23:21 | Inpatient (IN) | payer MEDICAID, OTHER ==
[~2020-01-07] VITALS: Ht 165.1 cm; Wt 172.4 kg
[~2020-01-07 23:21] MED LIST changes: +ACETAMINOPHEN-1 EAC1 ORAL; +SILVADENE20 GM TP
[2020-01-07 23:50] VITALS: BP 162/98
--- NOTE | 2020-01-07 23:50 | NUR ---
ED Nurse Note: Patient walked in from home c/o SOB at rest accompanied by cough for 3 weeks, patient states she has not been tested for COVID. Patient aao x 4 and ambulatory with steady gait. Patient c/o lower abdominal aching pain /. Patient changed into gown and placed on pvc monitor, pt O2 sat ranging from 89-91% on room air, pt placed on nasal cannula at 3L, O2 sat at 98% No acute distress noted during assessment.
--- NOTE | 2020-01-08 00:43 | Emergency Room Report ---
History of Present Illness General Chief Complaint: Dyspnea/Respdistress Source: Patient Present Illness HPI Patient has been ill for 3 weeks. She is also dyspneic at this time. She has been treating herself with Tylenol and [id number] cough medicines. When she coughs she has pain in her hernia in her abdomen. She wears a support. She was supposed to get surgery on it in April but then was canceled. She has lost her sense of smell. She also has a cardiac condition with hypertension. She states that her private physician was somewhat confused about how to treat it and she had one medicine that made her feel worse and then another when it was somewhat improved. She has swelling in her legs. She denies diabetes. She states she has been treated in the past for asthma like condition with an inhaler. She does not have one at this time. She does not know if she has been exposed to COVID-19 positive contacts. Her son is ill with fevers and cough. No sore throat, palpitations, nausea, vomiting, diarrhea, dysuria, joint pain, rashes, depression, anxiety, visual changes, dizziness, headache. Allergies: Coded Allergies: No Known Allergies (Unverified , 07/20/17) COVID-19 Screening Contact w/high risk pt: No Experienced COVID-19 symptoms?: Yes COVID-19 Testing performed CUTTER FIRST: No Patient History Past Medical History: see triage record Social History: Denies: smoking Social History Narrative Lives with her son Now: No Reviewed Nursing Documentation: PMH: Agreed; PSxH: Agreed Nursing Documentation-PMH Hx Cardiac Problems: No Hx Hypertension: Yes Hx Pacemaker: No Hx Asthma: No - PNA Hx COPD: No Hx Diabetes: No Hx Cancer: No Hx Gastrointestinal Problems: Yes - Hernia Hx Dialysis: No Hx Neurological Problems: No Hx Cerebrovascular Accident: No Hx Seizures: No Review of Systems All Other Systems: negative except mentioned in HPI Physical Exam Vital Signs Date Time Temp Pulse Resp B/P (MAP) Pulse Ox O2 Delivery O2 Flow Rate FiO2 01/07/20 23:30 97.9 90 18 92 Room Air Sp02 EP Interpretation: reviewed, abnormal General Appearance: well appearing, GCS 15, non-toxic, mild distress - Only with physical exertion prior to being on oxygen, obese Head: normocephalic Eyes: bilateral eye normal inspection, bilateral eye PERRL, bilateral eye EOMI ENT: normal pharynx, moist mucus membranes Neck: supple, no meningismus Respiratory: chest non-tender, no retraction, no wheezing, crackles - bilaterally, rales Cardiovascular #1: regular rate, rhythm, edema - Trace bilaterally Cardiovascular #2: 2+ radial (R) Gastrointestinal: normal inspection, normal bowel sounds, no mass, non- distended, no guarding, no rebound, tenderness - Right abdominal wall, overw eight Genitourinary: no CVA tenderness Musculoskeletal: back normal, normal range of motion, no calf tenderness, gait/station normal Neurologic: alert, oriented x3, grossly normal Psychiatric: mood/affect normal Skin: no rash, warm/dry Medical Decision Making Diagnostic Impression: Primary Impression: Pneumonia due to COVID-19 virus Additional Impressions: Hypoxia Abdominal hernia Qualified Codes: K45.8 - Other specified abdominal hernia without obstruction or gangrene ER Course Patient presents with hypoxia cough and alleged fevers. Differential includes pneumonia, COVID-19 pneumonia, pulmonary embolus, acute myocardial infarction amongst others. Patient evaluated with EKG, chest x-ray and labs included blood cultures and rapid Covid test. No bronchospasm heard. Patient placed on a cardiac surgeon. EKG normal sinus rhythm normal. Chest x-ray bilateral infiltrates. White count low normal. CMP unremarkable. Minimally elevated D-dimer. Urinalysis clear. Patient started on Rocephin and azithromycin for bilateral pulmonary infiltrates. COVID-19 returns positive. Dexamethasone begun. Patient admitted to the hospital under the care of Dr. Moses. Laboratory Tests Test 01/08/20 00:10 01/08/20 00:45 01/08/20 00:58 Urine Color Pale yellow Urine Appearance Clear Urine pH 6.5 (4.5-8.0) Urine Specific [place] 1.005 (1.005-1.035) Urine Protein Negative (NEGATIVE) Urine Glucose (UA) Negative (NEGATIVE) Urine Ketones Negative (NEGATIVE) Urine Blood Negative (NEGATIVE) Urine Nitrite Negative (NEGATIVE) Urine Bilirubin Negative (NEGATIVE) Urine Urobilinogen Normal MG/DL (0.0-1.0) Urine Leukocyte Esterase Negative (NEGATIVE) White Blood Count 6.8 K/UL (4.8-10.8) Red Blood Count 5.31 M/UL (4.20-5.40) Hemoglobin 15.6 G/DL (12.0-16.0) Hematocrit 52.6 % (37.0-47.0) H Mean Corpuscular Volume 99 FL (80-99) Mean Corpuscular Hemoglobin 29.5 PG (27.0-31.0) Mean Corpuscular Hemoglobin Concent 29.7 G/DL (32.0-36.0) L Red Cell Distribution Width 13.8 % (11.6-14.8) Platelet Count 165 K/UL (150-450) Mean Platelet Volume 6.9 FL (6.5-10.1) Neutrophils (%) (Auto) 58.9 % (45.0-75.0) Lymphocytes (%) (Auto) 31.5 % (20.0-45.0) Monocytes (%) (Auto) 7.3 % (1.0-10.0) Eosinophils (%) (Auto) 1.9 % (0.0-3.0) Basophils (%) (Auto) 0.4 % (0.0-2.0) Prothrombin Time 11.0 SEC (9.30-11.50) Prothrombin Time INR 1.0 (0.9-1.1) Activated Partial Thromboplast Time 25 SEC (23-33) D-Dimer 0.96 mg/L FEU (0.00-0.49) H Sodium Level 136 MMOL/L (136-145) Potassium Level 4.6 MMOL/L (3.5-5.1) Chloride Level 102 MMOL/L (98-107) Carbon Dioxide Level 28 MMOL/L (21-32) Anion Gap 6 mmol/L (5-15) Blood Urea Nitrogen 11 mg/dL (7-18) Creatinine 1.0 MG/DL (0.55-1.30) Estimated Glomerular Filtration Rate 57.4 mL/min (>60) Glucose Level 94 MG/DL (74-106) Calcium Level 8.2 MG/DL (8.5-10.1) L Magnesium Level 2.0 MG/DL (1.8-2.4) Ferritin 152 NG/ML (8-388) Total Bilirubin 0.4 MG/DL (0.2-1.0) Aspartate Amino Transferase (AST) 46 U/L (15-37) H Alanine Aminotransferase (ALT) 53 U/L (12-78) Alkaline Phosphatase 70 U/L (46-116) Lactate Dehydrogenase 316 U/L (81-234) H Total Creatine Kinase 89 U/L (26-308) Troponin I 0.000 ng/mL (0.000-0.056) C-Reactive Protein, Quantitative 9.5 mg/dL (0.00-0.90) H Pro-B-Type Natriuretic Peptide 43 pg/mL (0-125) Total Protein 8.2 G/DL (6.4-8.2) Albumin 3.0 G/DL (3.4-5.0) L Globulin 5.2 g/dL Albumin/Globulin Ratio 0.6 (1.0-2.7) L Lipase 149 U/L (73-393) Lactic Acid Level 0.90 mmol/L (0.4-2.0) Microbiology Date/Time Source Procedure Growth Status 01/08/20 00:20 Nasopharynx SARS-CoV-2 RdRp Gene Assay - Final Complete EKG Diagnostic Results Rate: normal Rhythm: NSR ST Segments: no acute changes Rhythm Strip Diag. Results EP Interpretation: yes Rhythm: NSR, no PVC's, no ectopy Chest X-Ray Diagnostic Results Chest X-Ray Diagnostic Results : Chest X-Ray Ordered: Yes # of Views/Limited/Complete: 1 View Indication: Shortness of Breath EP Interpretation: Yes Interpretation: no effusion, no pneumothorax, other - bilateral infiltrates Impression: Other Electronically Signed by: Electronically signed by Abiel Blas MD Last Vital Signs Date Time Temp Pulse Resp B/P (MAP) Pulse Ox O2 Delivery O2 Flow Rate FiO2 01/07/20 23:30 97.9 90 18 92 Room Air Status: improved Disposition: ADMITTED INPATIENT Condition: Serious Referrals: [facility],REFERRING (PCP) Abiel lBas MD Jan 08, 2020 00:43
[2020-01-08 00:52] LABS: APPEARANCE,URINE CLEAR; BILIRUBIN, URINE NEGATIVE (NEGATIVE); COLOR,URINE PALE YELLOW; GLUCOSE, URINE (UA) NEGATIVE (NEGATIVE); KETONES,URINE NEGATIVE (NEGATIVE); LEUKOCYTE ESTERASE ,URINE NEGATIVE (NEGATIVE); NITRITE,URINE NEGATIVE (NEGATIVE); PH,URINE 6.5 (4.5-8.0); PROTEIN,URINE NEGATIVE (NEGATIVE); UROBILINOGEN,URINE NORMAL MG/DL (0.0-1.0)
[2020-01-08] MEDS ORDERED: Azithromycin 500 MG in NS 275 ML IV ONE (01:00)
[2020-01-08] MEDS ORDERED: cefTRIAXone 1 GM in NS 55 ML IVPB ONE (01:00)
[2020-01-08 01:29] LABS: BASOPHILS % (AUTO) 0.4 % (0.0-2.0); EOSINOPHILS % (AUTO) 1.9 % (0.0-3.0); HEMATOCRIT 52.6 % (37.0-47.0); HEMOGLOBIN 15.6 G/DL (12.0-16.0); LYMPHOCYTES % (AUTO) 31.5 % (20.0-45.0); MEAN CORPUSCULAR VOLUME 99 FL (80-99); MONOCYTES % (AUTO) 7.3 % (1.0-10.0); NEUTROPHILS % (AUTO) 58.9 % (45.0-75.0); PLATELET COUNT 165 K/UL (150-450); RED BLOOD COUNT 5.31 M/UL (4.20-5.40); RED CELL DISTRIBUTION WIDTH 13.8 % (11.6-14.8); WHITE BLOOD COUNT 6.8 K/UL (4.8-10.8)
[2020-01-08 01:49] LABS: ANION GAP 6 mmol/L (5-15); BLOOD UREA NITROGEN 11 mg/dL (7-18); CALCIUM 8.2 MG/DL (8.5-10.1); CARBON DIOXIDE 28 MMOL/L (21-32); CHLORIDE 102 MMOL/L (98-107); POTASSIUM 4.6 MMOL/L (3.5-5.1); SODIUM 136 MMOL/L (136-145)
[2020-01-08 01:57] LABS: ALANINE AMINOTRANSFERASE 53 U/L (12-78); ALBUMIN/GLOBULIN RATIO 0.6 (1.0-2.7); ALKALINE PHOSPHATASE 70 U/L (46-116); ASPARTATE AMINO TRANSFERASE 46 U/L (15-37); BILIRUBIN,TOTAL 0.4 MG/DL (0.2-1.0); CREATINE KINASE 89 U/L (26-308); FERRITIN 152 NG/ML (8-388); LACTATE DEHYDROGENASE 316 U/L (81-234)
[2020-01-08] MEDS ORDERED: dexAMETHasone 10mg/ml Inj IV ONE (02:30)
--- NOTE | 2020-01-08 02:59 | NUR ---
ED Nurse Note: REPORT GIVEN TO LUC ZENDEJAS. PATIENT TO BE ADMITTED TO [place] [id number] UNDER THE CARE OF MOISES GENAO.
--- NOTE | 2020-01-08 03:30 | NUR ---
TRANSFER TO FLOOR: Patient transferred to med surg as ordered, per ERMD. Patient transported via gurney in stable condition accompanied by botanical technical officer.
[2020-01-08 04:00] VITALS: BP 155/96
--- NOTE | 2020-01-08 04:27 | NUR ---
NURSE NOTES: Patient in bed, awake, alert and verbally responsive. Able to make needs known. Respiration is even, on nasal cannula 3 L. No complaint of pain or discomfort noted. Abdomen is soft, round. Skin is warm and dry to touch. Bed in low and locked position. Provided safe environment. Iv site noted. Oriented patient to the room, use of call light and phone. All belongings at bedside. Call light is at bedside. Will continue plan of care.
--- NOTE | 2020-01-08 04:34 | NUR ---
NURSE NOTES: Patient alert x 4. Patient does not take prescription medications, only herbal medication for blood pressure. Her baseline SBP 150-160.
--- NOTE | 2020-01-08 07:10 | NUR ---
NURSE HAND-OFF: Important Events on Shift:New Admit Patient Status: Shortness of breath Diet: Pending Orders: Pending Results/Labs: Pending MD notification: Latest Vital Signs: Temperature 99.4 , Pulse 85 , B/P 155 /96 , Respiratory Rate 20 , O2 SAT 94 , Nasal Cannula, O2 Flow Rate 3.0 . Vital Sign Comment: Latest Elizondo Fall Score: 20 Fall Risk: Low Risk Safety Measures: Call light Within Reach, Bed Alarm Zone 1, Side Rails Side Rails x1, Bed position Low and Locked. Fall Precautions: Report given to CRISTIANA Barber.
--- NOTE | 2020-01-08 07:46 | NUR ---
NURSE NOTES: Received report from ciro Mantilla RN made pt , awake , sitting on edge of the bed, a/ox4, breaths regular unlabored no s/s of distress on 2 L NC,bed in low locked position, side rails upX2 call light in reach , will continue with plan of care
[2020-01-08 08:00] VITALS: BP 155/70
[2020-01-08] MEDS ORDERED: Enoxaparin 40mg Inj SUBQ SCH (09:00)
[2020-01-08 12:00] VITALS: BP 134/94
--- NOTE | 2020-01-08 13:00 | Consultation ---
DATE OF CONSULTATION: 01/08/2020 PULMONARY CONSULTATION CONSULTING PHYSICIAN: Jj Valerio MD. HISTORY OF PRESENT ILLNESS: This is a 54-year-old female admitted to the hospital with cough and abdominal pain. She has a history of abdominal hernia and states that she is supposed to get surgery on it. She reports lack of sense of smell and taste. She reports that she also has hypertension. The patient was admitted to the hospital and testing was initiated in the emergency room. Her rapid gene assay was positive for COVID-19 pneumonia. She underwent imaging studies, which has shown bilateral pulmonary infiltrates. The patient was noted to be hypoxic on room air and started on nasal oxygen 3 liters a minute. At this time, she states she is feeling better. PAST MEDICAL HISTORY: Notable for hypertension and abdominal hernia. REVIEW OF SYSTEMS: Denies any headaches, hematemesis, melena, hematochezia, night sweats or weight loss. PHYSICAL EXAMINATION: GENERAL: Reveals a 54-year-old female. VITAL SIGNS: Blood pressure is 150/70, heart rate 84, respiratory rate 18. O2 saturation on 3 liters of oxygen. HEENT: Unremarkable. LUNGS: Clear breath sounds bilaterally. ABDOMEN: Soft. EXTREMITIES: There is no edema. NEUROLOGIC: Nonfocal. LABORATORY AND DIAGNOSTIC DATA: X-ray as discussed above. Labs, blood testing shows normal CBC and BMP. LDH 316. AST 46. Calcium 8.2. Lactic acid 0.9. Troponin negative. Coags show D-dimer 0.9. Urinalysis, negative. IMPRESSION: 1. COVID-19 pneumonia. 2. Bilateral pulmonary infiltrates. 3. Hypertension. DISCUSSION: Admit to the hospital. We will initiate Decadron. We will defer to ID regarding use of remdesivir. We will follow carefully as head of human resources. We will order oxygen and DVT prophylaxis. Jj Valerio M.D. DR: CARMINA JOB#: [id number] CC:
[2020-01-08] MEDS: Enoxaparin 60mg Inj SUBQ SCH ×2 (14:08→20:21)
[2020-01-08] MEDS ORDERED: Loading Dose:Remdesivir 200mg/NS 210ml IV SCH ×2 (15:00)
--- NOTE | 2020-01-08 15:15 | Consultation ---
DATE OF CONSULTATION: 01/08/2020 INFECTIOUS DISEASE CONSULTATION This consult is for coverage of Dr. Bergman. CONSULTING PHYSICIAN: Vignesh Ramirez MD PRIMARY ATTENDING: Abiel Moses MD REASON FOR CONSULTATION: COVID-19 disease. HISTORY OF PRESENT ILLNESS: This 54-year-old female admitted today from home complaining of 2 weeks shortness of breath, coughing dry. No fever. She was hypoxemic, currently is on oxygen by nasal cannula. PAST MEDICAL HISTORY: Significant for hypertension, osteoarthritis, morbid obesity, abdominal wall hernia. ALLERGIES: No known drug allergies. MEDICATIONS: Getting dexamethasone. Got a dose of ceftriaxone and azithromycin in the ER. Getting Lovenox. SOCIAL HISTORY: Single. Denies alcohol, drug abuse, or smoking. REVIEW OF SYSTEMS: Nonproductive cough. No fever. No chills. No nausea. No vomiting. Has abdominal wall hernia. Has edema of legs. PHYSICAL EXAMINATION: VITAL SIGNS: Temperature 98.2, pulse 80, blood pressure 134/94. GENERAL APPEARANCE: Morbidly obese. HEAD AND NECK: Dodge conjunctivae. HEART: Normal rate. LUNGS: Clear. Has frequent dry cough. Getting oxygen by nasal cannula. ABDOMEN: Obese. Has big hernia. EXTREMITIES: Edema of legs. NEUROLOGIC: She is awake, alert, oriented x3. LABORATORY AND DIAGNOSTIC DATA: WBC 6.8, hemoglobin 15.6, hematocrit 52.6, platelets 165. Sodium 136, potassium 4.6, chloride 102, bicarb 28, BUN 11, creatinine 1, glucose is 94. LDH is 316. COVID-19 test is positive. Chest x-ray showed infiltrate, congestion. IMPRESSION: COVID-19 disease. Patient has also hypoxemia, morbid obesity, hypertension, ventral hernia. RECOMMENDATION: Continue dexamethasone. We suggest remdesivir. Case was discussed with pharmacist. At the end of my exam, I thank Dr. Moses, for involving me in the care of this patient. Vignesh Ramirez M.D. DR: NAEL JOB#: [id number] CC:
[2020-01-08 16:00] VITALS: BP 141/90
--- NOTE | 2020-01-08 16:05 | NUR ---
CASE MANAGEMENT:REVIEW WALKED INTO ER CC: SOB AND ABDOMINAL PAIN SI:COVID PNA 97.9 90 18 162/98 92% ON RA D-DIMER+0.96 IS: IV ROCEPHIN Q24 IV AZITHROMYCIN IV DECADRON LOVENOX SQ START IV REMDESIVIR : TO MED/SURG [facility]
--- NOTE | 2020-01-08 19:01 | NUR ---
NURSE HAND-OFF: Important Events on Shift: pt started on remdesivir Patient Status: stable Diet: regular Pending Orders: Pending Results/Labs: Pending MD notification: Latest Vital Signs: Temperature 96.7 , Pulse 77 , B/P 141 /90 , Respiratory Rate 19 , O2 SAT 95 , Nasal Cannula, O2 Flow Rate 2.0 . Vital Sign Comment: Latest Elizondo Fall Score: 20 Fall Risk: Low Risk Safety Measures: Call light Within Reach, Bed Alarm Zone 2, Side Rails Side Rails x2, Bed position Low and Locked. Fall Precautions: Yellow Socks Yellow Gown Patient Fall Education Report given to Everett ZENDEJAS .
--- NOTE | 2020-01-08 19:50 | NUR ---
NURSE NOTES: Received report from CRISTIANA Adler. Received pt sitting up on the side of the bed, AOx4, on 2 liters via nasal canula. Denies any pain or no SOB. Breathing is even and unlabored. No distress noted. Bed locked and in lowest position. Side rails up x 2. Call light within reach. Will continue to monitor.
[2020-01-08 20:00] VITALS: BP 132/80
[2020-01-08] MEDS ORDERED: Enoxaparin 120 mg inj SUBQ SCH (21:00)
--- NOTE | 2020-01-08 21:39 | Diagnostic Imaging Report ---
Indication: Shortness of breath Technique: One view of the chest Comparison: 04/19/2018 Findings: The heart is enlarged. There is very mild perihilar venous congestion. There is central prominence of the bronchovascular markings. No focal airspace consolidation or effusion. Impression: Cardiomegaly with mild perihilar venous congestion
[2020-01-09] VITALS: BP 147/92
--- NOTE | 2020-01-09 01:45 | History and Physical Report ---
DATE OF ADMISSION: 01/08/2020 REASON: COVID-19 pneumonia. HISTORY OF PRESENT ILLNESS: This 54-year-old female has had 2 weeks of progressive shortness of breath, dry cough, and general malaise. She has not had fevers. She was noted to be hypoxic in the emergency room with an abnormal chest radiograph and a positive COVID-19 swab. PAST MEDICAL HISTORY: Includes hypertension, osteoarthritis, and abdominal wall hernia. ALLERGIES: None. MEDICATIONS: Reviewed and reconciled. FAMILY HISTORY: Noncontributory. SOCIAL HISTORY: Negative for smoking, alcohol, or substance abuse. REVIEW OF SYSTEMS: A 10-point review of systems performed, all negative other than noted above. PHYSICAL EXAMINATION: VITAL SIGNS: Afebrile, blood pressure 134/94, pulse 80, respirations 20. GENERAL: Morbidly obese. HEENT: Oropharynx clear with no thrush. NECK: Jugular venous pressure difficult to assess. No accessory muscle use. LUNGS: With diminished breath sounds. No wheezing or rales. CARDIAC: Regular rhythm and rate. Normal S1, S2 with no murmur. ABDOMEN: Obese, soft with a ventral hernia. EXTREMITIES: With 1+ dependent edema. NEUROLOGIC: Nonfocal. LABORATORY AND DIAGNOSTIC DATA: Labs are reviewed. Chest radiograph with mild infiltrates. IMPRESSION: 1. COVID-19 pneumonia. 2. Hypoxia. 3. Venous insufficiency. 4. History of hypertension. 5. No signs of acute congestive heart failure. 6. Reducible ventral hernia PLAN: 1. Nasal oxygen. 2. Pulmonary and Infectious Disease evaluations for initiation of intravenous Remdesivir. 3. IV steroids. 4. Full anticoagulation. 5. Monitor volume status. 6. Follow up coagulation parameters. 7. Venous duplex scan. Abiel Moses M.D. DR: DINESH JOB#: [id number] CC:
[2020-01-09 04:00] VITALS: BP 142/85
[2020-01-09 06:34] LABS: BASOPHILS % (AUTO) 0.1 % (0.0-2.0); HEMATOCRIT 41.7 % (37.0-47.0); HEMOGLOBIN 13.7 G/DL (12.0-16.0); LYMPHOCYTES % (AUTO) 18.5 % (20.0-45.0); MEAN CORPUSCULAR VOLUME 91 FL (80-99); MONOCYTES % (AUTO) 5.3 % (1.0-10.0); PLATELET COUNT 229 K/UL (150-450); RED BLOOD COUNT 4.61 M/UL (4.20-5.40); RED CELL DISTRIBUTION WIDTH 14.1 % (11.6-14.8)
[2020-01-09 06:58] LABS: ALANINE AMINOTRANSFERASE 47 U/L (12-78); ALBUMIN 2.6 G/DL (3.4-5.0); ALBUMIN/GLOBULIN RATIO 0.5 (1.0-2.7); ALKALINE PHOSPHATASE 70 U/L (46-116); ANION GAP 4 mmol/L (5-15); ASPARTATE AMINO TRANSFERASE 32 U/L (15-37); BILIRUBIN,DIRECT < 0.1 MG/DL (0.0-0.3); BILIRUBIN,TOTAL 0.3 MG/DL (0.2-1.0); BLOOD UREA NITROGEN 11 mg/dL (7-18); CALCIUM 8.7 MG/DL (8.5-10.1); CARBON DIOXIDE 31 MMOL/L (21-32); CHLORIDE 106 MMOL/L (98-107); CREATININE 0.7 MG/DL (0.55-1.30); POTASSIUM 4.2 MMOL/L (3.5-5.1); SODIUM 141 MMOL/L (136-145)
--- NOTE | 2020-01-09 07:05 | NUR ---
NURSE HAND-OFF: Important Events on Shift: None Patient Status: Stable Diet: Regular Pending Orders: None Pending Results/Labs: Fady direct, CBC, CMP Pending MD notification:N/A Latest Vital Signs: Temperature 98.8 , Pulse 80 , B/P 142 /85 , Respiratory Rate 18 , O2 SAT 94 , Nasal Cannula, O2 Flow Rate 2.0 . Vital Sign Comment: Stable Latest Elizondo Fall Score: 20 Fall Risk: Low Risk Safety Measures: Call light Within Reach, Bed Alarm Zone 2, Side Rails Side Rails x2, Bed position Low and Locked. Fall Precautions: Yellow Socks Yellow Gown Patient Fall Education Report given to: CRISTIANA Kruse
--- NOTE | 2020-01-09 07:05 | NUR ---
HAND-OFF: Report given to: CRISTIANA Kruse
--- NOTE | 2020-01-09 07:08 | NUR ---
NURSE NOTES: Report received from Jayson RN, rounds made. Patient sitting up at bedside. AOx4 calm. Respirations even/unlabored on O2 3LNC. Non-productive cough. Abdomen distended/firm. Bilateral +1 pitting edema. RH saline lock, intact, site asymptomatic. Left gordon with scab, will apply optifoam for barrier. Call light in reach, bed in lowest position, will continue to monitor.
[2020-01-09 08:00] VITALS: BP 136/84
[2020-01-09] MEDS: Enoxaparin 80mg Inj SUBQ SCH ×2 (10:41→21:18)
--- NOTE | 2020-01-09 11:24 | Cardiology Progress Note ---
Subjective DATE OF SERVICE: Jan 09, 2020 Saturating well on low flow O2 Appetite fair Glucose slightly elevated; no hx DM Objective Last 24 Hour Vital Signs Date Time Temp Pulse Resp B/P (MAP) Pulse Ox O2 Delivery O2 Flow Rate FiO2 01/09/20 08:00 97.9 66 18 136/84 (101) 97 01/09/20 04:00 98.8 80 18 142/85 (104) 94 01/09/20 00:00 98.4 78 18 147/92 (110) 95 01/08/20 21:00 Nasal Cannula 2.0 01/08/20 20:00 98.9 81 18 132/80 (97) 94 01/08/20 16:00 96.7 77 19 141/90 (107) 95 01/08/20 12:00 98.2 80 19 134/94 (107) 96 HEENT: normal ENT inspection LUNGS: bilateral rhonchi CARDIAC: normal rate, regular rhythm, normal S1 and S2 ABDOMEN: normal bowel sounds, non tender, soft, hernia, other - obese EXTREMITIES: No edema Laboratory Tests Test 01/09/20 05:57 White Blood Count 10.0 K/UL (4.8-10.8) Red Blood Count 4.61 M/UL (4.20-5.40) Hemoglobin 13.7 G/DL (12.0-16.0) Hematocrit 41.7 % (37.0-47.0) Mean Corpuscular Volume 91 FL (80-99) # Mean Corpuscular Hemoglobin 29.7 PG (27.0-31.0) Mean Corpuscular Hemoglobin Concent 32.9 G/DL (32.0-36.0) Red Cell Distribution Width 14.1 % (11.6-14.8) Platelet Count 229 K/UL (150-450) Mean Platelet Volume 7.4 FL (6.5-10.1) Neutrophils (%) (Auto) 76.0 % (45.0-75.0) H Lymphocytes (%) (Auto) 18.5 % (20.0-45.0) L Monocytes (%) (Auto) 5.3 % (1.0-10.0) Eosinophils (%) (Auto) 0.0 % (0.0-3.0) Basophils (%) (Auto) 0.1 % (0.0-2.0) Sodium Level 141 MMOL/L (136-145) Potassium Level 4.2 MMOL/L (3.5-5.1) Chloride Level 106 MMOL/L (98-107) Carbon Dioxide Level 31 MMOL/L (21-32) Anion Gap 4 mmol/L (5-15) L Blood Urea Nitrogen 11 mg/dL (7-18) Creatinine 0.7 MG/DL (0.55-1.30) Estimat Glomerular Filtration Rate > 60 mL/min (>60) Glucose Level 148 MG/DL (74-106) H Calcium Level 8.7 MG/DL (8.5-10.1) Total Bilirubin 0.3 MG/DL (0.2-1.0) Direct Bilirubin < 0.1 MG/DL (0.0-0.3) Aspartate Amino Transf (AST/SGOT) 32 U/L (15-37) Alanine Aminotransferase (ALT/SGPT) 47 U/L (12-78) Alkaline Phosphatase 70 U/L (46-116) Total Protein 7.5 G/DL (6.4-8.2) Albumin 2.6 G/DL (3.4-5.0) L Globulin 4.9 g/dL Albumin/Globulin Ratio 0.5 (1.0-2.7) L Microbiology Date/Time Source Procedure Growth Status 01/08/20 00:20 Nasopharynx SARS-CoV-2 RdRp Gene Assay - Final Complete Assessment/Plan Assessment/Plan Covid 19 PNA Hypoxia Obesity Ventral hernia Steroid induced hyperglycemia Steroids Lovenox Remdesivir O2 Insulin cov'g Abiel Moses MD Jan 09, 2020 11:24
--- NOTE | 2020-01-09 11:30 | Infectious Diseases Prog Note ---
Assessment/Plan Assessment/Plan antibiotics : remdesivir A 1. COVID 19 pneumonia on 2 liters O2, 97 % saturation 2. hypertension 3. obesity 4. ventral hernia P 1. continue remdesivir day 2 2. continue dexamethsone day 2 3. continue isolation Subjective Constitutional: Denies: fever, chills Respiratory: Reports: shortness of breath, dry cough - decreased Gastrointestinal/Abdominal: Reports: diarrhea - mild; Denies: nausea, vomiting Neurologic: Reports: headache Musculoskeletal: Reports: pain - in back Allergies: Coded Allergies: No Known Allergies (Unverified , 07/20/17) Objective Last 24 Hour Vital Signs Date Time Temp Pulse Resp B/P (MAP) Pulse Ox O2 Delivery O2 Flow Rate FiO2 01/09/20 08:00 97.9 66 18 136/84 (101) 97 01/09/20 04:00 98.8 80 18 142/85 (104) 94 01/09/20 00:00 98.4 78 18 147/92 (110) 95 01/08/20 21:00 Nasal Cannula 2.0 01/08/20 20:00 98.9 81 18 132/80 (97) 94 01/08/20 16:00 96.7 77 19 141/90 (107) 95 01/08/20 12:00 98.2 80 19 134/94 (107) 96 Height (Feet): 5 Height (Inches): 5.00 Weight (Pounds): 380 Microbiology Date/Time Source Procedure Growth Status 01/08/20 00:20 Nasopharynx SARS-CoV-2 RdRp Gene Assay - Final Complete Laboratory Tests Test 01/09/20 05:57 White Blood Count 10.0 K/UL (4.8-10.8) Red Blood Count 4.61 M/UL (4.20-5.40) Hemoglobin 13.7 G/DL (12.0-16.0) Hematocrit 41.7 % (37.0-47.0) Mean Corpuscular Volume 91 FL (80-99) # Mean Corpuscular Hemoglobin 29.7 PG (27.0-31.0) Mean Corpuscular Hemoglobin Concent 32.9 G/DL (32.0-36.0) Red Cell Distribution Width 14.1 % (11.6-14.8) Platelet Count 229 K/UL (150-450) Mean Platelet Volume 7.4 FL (6.5-10.1) Neutrophils (%) (Auto) 76.0 % (45.0-75.0) H Lymphocytes (%) (Auto) 18.5 % (20.0-45.0) L Monocytes (%) (Auto) 5.3 % (1.0-10.0) Eosinophils (%) (Auto) 0.0 % (0.0-3.0) Basophils (%) (Auto) 0.1 % (0.0-2.0) Sodium Level 141 MMOL/L (136-145) Potassium Level 4.2 MMOL/L (3.5-5.1) Chloride Level 106 MMOL/L (98-107) Carbon Dioxide Level 31 MMOL/L (21-32) Anion Gap 4 mmol/L (5-15) L Blood Urea Nitrogen 11 mg/dL (7-18) Creatinine 0.7 MG/DL (0.55-1.30) Estimat Glomerular Filtration Rate > 60 mL/min (>60) Glucose Level 148 MG/DL (74-106) H Calcium Level 8.7 MG/DL (8.5-10.1) Total Bilirubin 0.3 MG/DL (0.2-1.0) Direct Bilirubin < 0.1 MG/DL (0.0-0.3) Aspartate Amino Transf (AST/SGOT) 32 U/L (15-37) Alanine Aminotransferase (ALT/SGPT) 47 U/L (12-78) Alkaline Phosphatase 70 U/L (46-116) Total Protein 7.5 G/DL (6.4-8.2) Albumin 2.6 G/DL (3.4-5.0) L Globulin 4.9 g/dL Albumin/Globulin Ratio 0.5 (1.0-2.7) L Current Medications Medications (Trade) Dose Ordered Sig/Pawel Route PRN Reason Start Time Stop Time Status Last Admin Dose Admin Dexamethasone Sodium Phosphate (Decadron 4mg/ml vial) 6 mg DAILY IVP 01/09/20 09:00 01/17/20 08:59 01/09/20 08:27 Enoxaparin Sodium (Lovenox) 80 mg Q12HR SUBQ 01/09/20 09:00 04/08/20 08:59 12/4/20 10:41 Remdesivir 100 mg/ Sodium Chloride 250 ml @ 250 mls/hr Q24H IV 01/09/20 15:00 01/12/20 15:59 Eric Bergman MD Jan 09, 2020 11:30
[2020-01-09 12:00] VITALS: BP 148/88
--- NOTE | 2020-01-09 13:42 | Pulmonology Progress Note ---
Subjective ROS Limited/Unobtainable: No Interval Events: none major Constitutional: Denies: fever, chills HEENT: Repors: no symptoms Respiratory: Reports: other - mild intermittent cough Gastrointestinal/Abdominal: Reports: diarrhea - mild; Denies: nausea, vomiting Musculoskeletal: Reports: pain - in back Allergies: Coded Allergies: No Known Allergies (Unverified , 07/20/17) Objective Last 24 Hour Vital Signs Date Time Temp Pulse Resp B/P (MAP) Pulse Ox O2 Delivery O2 Flow Rate FiO2 01/09/20 12:00 97.5 67 20 148/88 (108) 95 01/09/20 08:00 97.9 66 18 136/84 (101) 97 01/09/20 04:00 98.8 80 18 142/85 (104) 94 01/09/20 00:00 98.4 78 18 147/92 (110) 95 01/08/20 21:00 Nasal Cannula 2.0 01/08/20 20:00 98.9 81 18 132/80 (97) 94 01/08/20 16:00 96.7 77 19 141/90 (107) 95 Intake and Output 01/08/20 01/09/20 19:00 07:00 Intake Total 2400 ml 220 ml Balance 2400 ml 220 ml Intake Oral 2400 ml 220 ml # Voids 4 2 Objective 01/09/2020 Labs reviewed; saturating 95-97% on 3 lpm NC General Appearance: no acute distress, other - sitting up in bed HEENT: normocephalic Respiratory: chest wall non-tender, rhonchi - bilaterally Abdomen: hernia - ventral, other - morbidly obese Extremities: other - edema in four extremities Microbiology Date/Time Source Procedure Growth Status 01/08/20 00:20 Nasopharynx SARS-CoV-2 RdRp Gene Assay - Final Complete Laboratory Tests 01/09/20 05:57: White Blood Count 10.0, Red Blood Count 4.61, Hemoglobin 13.7, Hematocrit 41.7, Mean Corpuscular Volume 91#, Mean Corpuscular Hemoglobin 29.7, Mean Corpuscular Hemoglobin Concent 32.9, Red Cell Distribution Width 14.1, Platelet Count 229, Mean Platelet Volume 7.4, Neutrophils (%) (Auto) 76.0H, Lymphocytes (%) (Auto) 18.5L, Monocytes (%) (Auto) 5.3, Eosinophils (%) (Auto) 0.0, Basophils (%) (Auto) 0.1, Sodium Level 141, Potassium Level 4.2, Chloride Level 106, Carbon Dioxide Level 31, Anion Gap 4L, Blood Urea Nitrogen 11, Creatinine 0.7, Estimat Glomerular Filtration Rate > 60, Glucose Level 148H, Calcium Level 8.7, Total Bilirubin 0.3, Direct Bilirubin < 0.1, Aspartate Amino Transf (AST/SGOT) 32, Alanine Aminotransferase (ALT/SGPT) 47, Alkaline Phosphatase 70, Total Protein 7.5, Albumin 2.6L, Globulin 4.9, Albumin/Globulin Ratio 0.5L Current Medications Medications (Trade) Dose Ordered Sig/Pawel Route PRN Reason Start Time Stop Time Status Last Admin Dose Admin Dexamethasone Sodium Phosphate (Decadron 4mg/ml vial) 6 mg DAILY IVP 01/09/20 09:00 01/17/20 08:59 01/09/20 08:27 Enoxaparin Sodium (Lovenox) 80 mg Q12HR SUBQ 01/09/20 09:00 04/08/20 08:59 01/09/20 10:41 Remdesivir 100 mg/ Sodium Chloride 250 ml @ 250 mls/hr Q24H IV 01/09/20 15:00 01/12/20 15:59 Assessment/Plan Assessment/Plan 1. COVID-19 pneumonia. - Decadron initiated - Defer to ID regarding use of remdesivir 2. Bilateral pulmonary infiltrates. 3. Hypertension. 4. DVT ppx - Lovenox added - venous duplex pending We will follow carefully as etl bi developer. The care for this patient was discussed with my supervising physician Seen and examined by Dr. Valerio as well Time spent for this case was approximately 31 minutes Pawel Sung Jan 09, 2020 13:42
--- NOTE | 2020-01-09 15:17 | NUR ---
CASE MANAGEMENT:REVIEW 01/09/20 SI: COVID PNEUMONIA 97.5 67 20 148/88 95% ON 3L/NC IS: IV REMDESIVIR Q24 (/) IV DECADRON Q24 LOVENOX SQ Q12 : MED/SURG STATUS 4 [facility] DCP: FROM HOME
[2020-01-09] MEDS: Maintenance Dose:Remdesivir 100mg/NS 230ml x 4 Doses IV SCH ×2 (15:52)
[2020-01-09 16:00] VITALS: BP 160/88
--- NOTE | 2020-01-09 17:59 | Diagnostic Imaging Report ---
EXAM: US Duplex Bilateral Lower Extremities Veins CLINICAL HISTORY: DVT TECHNIQUE: Real-time duplex ultrasound scan of the bilateral lower extremity veins integrating B-mode two-dimensional vascular structure, Doppler spectral analysis, color flow Doppler imaging and compression. COMPARISON: No relevant prior studies available. FINDINGS: Right deep veins: Unremarkable as visualized. Normal compression and normal response to augmentation. Right superficial veins: Unremarkable as visualized. Left deep veins: Unremarkable as visualized. Normal compression and normal response to augmentation. Left superficial veins: Unremarkable as visualized. Soft tissues: No acute findings. IMPRESSION: No DVT.
--- NOTE | 2020-01-09 19:28 | NUR ---
NURSE HAND-OFF: Important Events on Shift:VD done at 1715, Monitor BP, Diarrhea x1 in AM Patient Status: stable Diet: Regular Pending Orders: none Pending Results/Labs:none Pending MD notification:none Latest Vital Signs: Temperature 98.1 , Pulse 72 , B/P 160 /88 , Respiratory Rate 18 , O2 SAT 94 , Nasal Cannula, O2 Flow Rate 3.0 . Vital Sign Comment: Monitor BP Latest Elizondo Fall Score: 20 Fall Risk: Low Risk Safety Measures: Call light Within Reach, Bed Alarm Zone 2, Side Rails Side Rails x2, Bed position Low and Locked. Fall Precautions: Yellow Socks Yellow Gown Patient Fall Education Report given to Ruben RN.
--- NOTE | 2020-01-09 19:45 | NUR ---
NURSE NOTES: The patient as alert and oriented x4, she was calm and responsive with her treatment.She is on 3 liters NC well tolerated.The patient has swellings in the arm that is non-pitting, bilateral lower leg edema was also noted.She has a Right hand 18g saline log that is patent and asymptomatic. The bed in low level, call light within easy reach and the siderails up x2. will continue to monitor as indicated
[2020-01-09 20:00] VITALS: BP 143/86
--- NOTE | 2020-01-09 23:40 | NUR ---
NURSE NOTES: The patient blood pressure was high at about 170/90, the patient refused blood pressure medicine that she is taking a herbal tea and is enough to reduce her blood pressure. She is however alert and stable and does not seem to be in any acute distress at this time. Will followup with MD as indicated.
[2020-01-10] VITALS: BP 170/93
[2020-01-10 04:00] VITALS: BP 160/96
[2020-01-10 07:13] LABS: BASOPHILS % (AUTO) 0.5 % (0.0-2.0); EOSINOPHILS % (AUTO) 0.1 % (0.0-3.0); HEMATOCRIT 43.7 % (37.0-47.0); HEMOGLOBIN 13.9 G/DL (12.0-16.0); LYMPHOCYTES % (AUTO) 23.2 % (20.0-45.0); MEAN CORPUSCULAR VOLUME 94 FL (80-99); NEUTROPHILS % (AUTO) 69.2 % (45.0-75.0); PLATELET COUNT 239 K/UL (150-450); RED BLOOD COUNT 4.66 M/UL (4.20-5.40); RED CELL DISTRIBUTION WIDTH 14.1 % (11.6-14.8); WHITE BLOOD COUNT 8.8 K/UL (4.8-10.8)
[2020-01-10 07:18] LABS: ALANINE AMINOTRANSFERASE 80 U/L (12-78); ALBUMIN 2.5 G/DL (3.4-5.0); ALBUMIN/GLOBULIN RATIO 0.5 (1.0-2.7); ALKALINE PHOSPHATASE 55 U/L (46-116); ANION GAP 4 mmol/L (5-15); ASPARTATE AMINO TRANSFERASE 62 U/L (15-37); BILIRUBIN,DIRECT < 0.1 MG/DL (0.0-0.3); BILIRUBIN,TOTAL 0.3 MG/DL (0.2-1.0); BLOOD UREA NITROGEN 13 mg/dL (7-18); CALCIUM 8.5 MG/DL (8.5-10.1); CARBON DIOXIDE 30 MMOL/L (21-32); CHLORIDE 107 MMOL/L (98-107); CREATININE 0.7 MG/DL (0.55-1.30); SODIUM 141 MMOL/L (136-145)
--- NOTE | 2020-01-10 07:30 | NUR ---
NURSE NOTES: Patient is sitting up at the edge of the bed. Stable. Breathing is even and unlabored on 2L oxygen via nc. No visible signs of distress noted. Patient instructed to use call light for assistance, verbalized understanding. Patient is in bed in locked and lowest position with call light within reach. All needs met at this time. Will continue to monitor.
--- NOTE | 2020-01-10 07:56 | NUR ---
NURSE HAND-OFF: Important Events on Shift:Alert and stable and continous on oxygen 2 liters NC Patient Status: Diet: Pending Orders: Pending Results/Labs: Pending MD notification: Latest Vital Signs: Temperature 98.5 , Pulse 61 , B/P 160 /96 , Respiratory Rate 18 , O2 SAT 95 , Nasal Cannula, O2 Flow Rate 3.0 . Vital Sign Comment: Latest Elizondo Fall Score: 20 Fall Risk: Low Risk Safety Measures: Call light Within Reach, Bed Alarm Zone 2, Side Rails Side Rails x2, Bed position Low and Locked. Fall Precautions: Yellow Socks Yellow Gown Patient Fall Education Report given to .
[2020-01-10 08:00] VITALS: BP 158/95
[2020-01-10] MEDS: Enoxaparin 80mg Inj SUBQ SCH ×2 (08:26→20:40)
--- NOTE | 2020-01-10 08:40 | Pulmonology Progress Note ---
Subjective ROS Limited/Unobtainable: No Interval Events: SBPs 150-170; pt states no weakness in extremities, chest pain, SOB Constitutional: Denies: fever, chills HEENT: Repors: no symptoms Respiratory: Reports: other - mild intermittent cough Gastrointestinal/Abdominal: Reports: diarrhea - mild; Denies: nausea, vomiting Musculoskeletal: Reports: pain - in back Allergies: Coded Allergies: No Known Allergies (Unverified , 07/20/17) Objective Last 24 Hour Vital Signs Date Time Temp Pulse Resp B/P (MAP) Pulse Ox O2 Delivery O2 Flow Rate FiO2 01/10/20 04:00 98.5 61 18 160/96 (117) 95 01/10/20 00:00 98.5 68 18 170/93 (118) 95 01/09/20 21:00 Nasal Cannula 3.0 01/09/20 20:00 98.6 73 20 143/86 (105) 96 01/09/20 16:00 98.1 72 18 160/88 (112) 94 01/09/20 12:00 97.5 67 20 148/88 (108) 95 01/09/20 09:00 Nasal Cannula 3.0 Intake and Output 01/09/20 01/10/20 19:00 07:00 Intake Total 950 ml 180 ml Balance 950 ml 180 ml Intake Oral 950 ml 180 ml # Voids 4 2 # Bowel Movements 2 1 Objective 01/10/2020 labs reviewed; saturating 95% on 2 lpm NC; pt sitting up in bed 01/09/2020 Labs reviewed; saturating 95-97% on 3 lpm NC General Appearance: no acute distress, other - sitting up in bed HEENT: normocephalic Respiratory: chest wall non-tender, rhonchi - bilaterally Abdomen: hernia - ventral, other - morbidly obese Extremities: other - edema in four extremities Microbiology Date/Time Source Procedure Growth Status 01/08/20 01:00 Blood Blood Culture - Preliminary NO GROWTH AFTER 24 HOURS Resulted 01/08/20 00:45 Blood Blood Culture - Preliminary NO GROWTH AFTER 24 HOURS Resulted 01/08/20 00:20 Nasopharynx SARS-CoV-2 RdRp Gene Assay - Final Complete Laboratory Tests 01/10/20 05:35: White Blood Count 8.8, Red Blood Count 4.66, Hemoglobin 13.9, Hematocrit 43.7, Mean Corpuscular Volume 94, Mean Corpuscular Hemoglobin 29.9, Mean Corpuscular Hemoglobin Concent 31.9L, Red Cell Distribution Width 14.1, Platelet Count 239, Mean Platelet Volume 6.8, Neutrophils (%) (Auto) 69.2, Lymphocytes (%) (Auto) 23.2, Monocytes (%) (Auto) 7.0, Eosinophils (%) (Auto) 0.1, Basophils (%) (Auto) 0.5, Sodium Level 141, Potassium Level 4.0, Chloride Level 107, Carbon Dioxide Level 30, Anion Gap 4L, Blood Urea Nitrogen 13, Creatinine 0.7, Estimat Glomerular Filtration Rate > 60, Glucose Level 125H, Calcium Level 8.5, Total Bilirubin 0.3, Direct Bilirubin < 0.1, Aspartate Amino Transf (AST/SGOT) 62H, Alanine Aminotransferase (ALT/SGPT) 80H, Alkaline Phosphatase 55, C-Reactive Protein, Quantitative 4.8H, Total Protein 7.1, Albumin 2.5L, Globulin 4.6, Albumin/Globulin Ratio 0.5L Current Medications Medications (Trade) Dose Ordered Sig/Pawel Route PRN Reason Start Time Stop Time Status Last Admin Dose Admin Dexamethasone Sodium Phosphate (Decadron 4mg/ml vial) 6 mg DAILY IVP 01/09/20 09:00 01/17/20 08:59 01/10/20 08:25 Enoxaparin Sodium (Lovenox) 80 mg Q12HR SUBQ 01/09/20 09:00 04/08/20 08:59 01/10/20 08:26 Remdesivir 100 mg/ Sodium Chloride 250 ml @ 250 mls/hr Q24H IV 01/09/20 15:00 01/12/20 15:59 01/09/20 15:52 Assessment/Plan Assessment/Plan 1. COVID-19 pneumonia. - On Decadron - Defer to ID regarding use of remdesivir 2. Bilateral pulmonary infiltrates. 3. Hypertension. - Highest recorded SBP 170, now 148 - Pt states conventional antihypertensives give her "side effects such as memory loss and back pain and blurry vision" and would like herbal tea that she usually drinks to "control" her BP. Pt education of BP control provided. Pt willing to try medication. - She states no chest pain, weakness in extremities, SOB - Defer to cardio 4. DVT ppx - Lovenox added - venous duplex 01/09/2020 negative for DVT 5. Elevated LFT - 01/10/2020 AST 62, ALT 80 We will follow carefully as slot editor. The care for this patient was discussed with my supervising physician Seen and examined by Dr. Valerio as well Time spent for this case was approximately 31 minutes Pawel Sung Jan 10, 2020 08:40
--- NOTE | 2020-01-10 11:25 | Infectious Diseases Prog Note ---
Assessment/Plan Assessment/Plan antibiotics : remdesivir A 1. COVID 19 pneumonia on 3 liters O2, 95 % saturation 2. hypertension 3. obesity 4. ventral hernia P 1. continue remdesivir day 3 2. continue dexamethsone day 3 3. continue isolation Subjective Constitutional: Denies: fever, chills Respiratory: Reports: shortness of breath - decreased, dry cough - decreased Gastrointestinal/Abdominal: Reports: diarrhea - mild; Denies: nausea, vomiting Neurologic: Reports: headache - decreased Allergies: Coded Allergies: No Known Allergies (Unverified , 07/20/17) Objective Last 24 Hour Vital Signs Date Time Temp Pulse Resp B/P (MAP) Pulse Ox O2 Delivery O2 Flow Rate FiO2 01/10/20 09:00 Nasal Cannula 3.0 01/10/20 08:00 98.2 65 18 158/95 (116) 93 01/10/20 04:00 98.5 61 18 160/96 (117) 95 01/10/20 00:00 98.5 68 18 170/93 (118) 95 01/09/20 21:00 Nasal Cannula 3.0 01/09/20 20:00 98.6 73 20 143/86 (105) 96 01/09/20 16:00 98.1 72 18 160/88 (112) 94 01/09/20 12:00 97.5 67 20 148/88 (108) 95 Height (Feet): 5 Height (Inches): 5.00 Weight (Pounds): 380 Microbiology Date/Time Source Procedure Growth Status 01/08/20 01:00 Blood Blood Culture - Preliminary NO GROWTH AFTER 24 HOURS Resulted 01/08/20 00:45 Blood Blood Culture - Preliminary NO GROWTH AFTER 24 HOURS Resulted 01/08/20 00:20 Nasopharynx SARS-CoV-2 RdRp Gene Assay - Final Complete Laboratory Tests Test 01/10/20 05:35 White Blood Count 8.8 K/UL (4.8-10.8) Red Blood Count 4.66 M/UL (4.20-5.40) Hemoglobin 13.9 G/DL (12.0-16.0) Hematocrit 43.7 % (37.0-47.0) Mean Corpuscular Volume 94 FL (80-99) Mean Corpuscular Hemoglobin 29.9 PG (27.0-31.0) Mean Corpuscular Hemoglobin Concent 31.9 G/DL (32.0-36.0) L Red Cell Distribution Width 14.1 % (11.6-14.8) Platelet Count 239 K/UL (150-450) Mean Platelet Volume 6.8 FL (6.5-10.1) Neutrophils (%) (Auto) 69.2 % (45.0-75.0) Lymphocytes (%) (Auto) 23.2 % (20.0-45.0) Monocytes (%) (Auto) 7.0 % (1.0-10.0) Eosinophils (%) (Auto) 0.1 % (0.0-3.0) Basophils (%) (Auto) 0.5 % (0.0-2.0) Sodium Level 141 MMOL/L (136-145) Potassium Level 4.0 MMOL/L (3.5-5.1) Chloride Level 107 MMOL/L (98-107) Carbon Dioxide Level 30 MMOL/L (21-32) Anion Gap 4 mmol/L (5-15) L Blood Urea Nitrogen 13 mg/dL (7-18) Creatinine 0.7 MG/DL (0.55-1.30) Estimat Glomerular Filtration Rate > 60 mL/min (>60) Glucose Level 125 MG/DL (74-106) H Calcium Level 8.5 MG/DL (8.5-10.1) Total Bilirubin 0.3 MG/DL (0.2-1.0) Direct Bilirubin < 0.1 MG/DL (0.0-0.3) Aspartate Amino Transf (AST/SGOT) 62 U/L (15-37) H Alanine Aminotransferase (ALT/SGPT) 80 U/L (12-78) H Alkaline Phosphatase 55 U/L (46-116) C-Reactive Protein, Quantitative 4.8 mg/dL (0.00-0.90) H Total Protein 7.1 G/DL (6.4-8.2) Albumin 2.5 G/DL (3.4-5.0) L Globulin 4.6 g/dL Albumin/Globulin Ratio 0.5 (1.0-2.7) L Current Medications Medications (Trade) Dose Ordered Sig/Pawel Route PRN Reason Start Time Stop Time Status Last Admin Dose Admin Dexamethasone Sodium Phosphate (Decadron 4mg/ml vial) 6 mg DAILY IVP 12/4/20 09:00 01/17/20 08:59 01/10/20 08:25 Enoxaparin Sodium (Lovenox) 80 mg Q12HR SUBQ 01/09/20 09:00 04/08/20 08:59 01/10/20 08:26 Remdesivir 100 mg/ Sodium Chloride 250 ml @ 250 mls/hr Q24H IV 01/09/20 15:00 01/12/20 15:59 01/09/20 15:52 Eric Bergman MD Jan 10, 2020 11:25
[2020-01-10] MEDS ORDERED: NS 275ml ONE (11:42)
[2020-01-10] MEDS ORDERED: Tubing IV Secondary IV ONE (11:42)
[2020-01-10 12:00] VITALS: BP 160/95
--- NOTE | 2020-01-10 15:07 | NUR ---
CASE MANAGEMENT:REVIEW SI;COVID PNEUMONIA 98.5 68 18 170/93 93% 3L NC AST 62 ALT 80 CRP 4.8 ALB 2.5 IS;REMDESIVIR IV Q24 DECADRON IV QD LOVENOX SQ Q12 MED SURG STATUS DCP;FROM HOME
[2020-01-10] MEDS: Maintenance Dose:Remdesivir 100mg/NS 230ml x 4 Doses IV SCH ×2 (15:10)
[2020-01-10] MEDS: guaiFENesin 100mg/5ml Liq ud ORAL PRN (15:10)
[2020-01-10 16:00] VITALS: BP_SYST 100; BP_SYST 142; BP_DIAS 60; BP_DIAS 75
--- NOTE | 2020-01-10 19:03 | NUR ---
NURSE HAND-OFF: Important Events on Shift: O2 therapy, remdesevir Patient Status: stable Diet: regular Pending Orders: n/a Pending Results/Labs:n/a Pending MD notification:n/a Latest Vital Signs: Temperature 97.5 , Pulse 58 , B/P 142 /75 , Respiratory Rate 18 , O2 SAT 99 , Nasal Cannula, O2 Flow Rate 3.0 . Vital Sign Comment: n/a Latest Elizondo Fall Score: 20 Fall Risk: Low Risk Safety Measures: Call light Within Reach, Bed Alarm Zone 2, Side Rails Side Rails x2, Bed position Low and Locked. Fall Precautions: Yellow Socks Yellow Gown Patient Fall Education .
--- NOTE | 2020-01-10 19:25 | NUR ---
HAND-OFF: Report given to Suly RN .
[2020-01-10 20:00] VITALS: BP 179/89
--- NOTE | 2020-01-10 23:05 | NUR ---
NURSE NOTES: RECEIVED PATIENT FROM CRISTIANA AGRCIA. PATIENT IS AWAKE, CALM, AMBULATORY WITH STEADY GAIT, AAOX4. PATIENT IS ON NC 3L, DENIES PAIN, DENIES SOB, NO ACUTE DISTRESS NOTED. NON-PRODUCTIVE COUGH NOTED. VSS. AFEBRILE. PIV ON RIGHT HAND INTACT AND PATENT. BILATERAL LOWER EXTREMITIES TRACE EDEMA NOTED. FALL RISK IMPLEMENTED. COMMUNICATED WITH STAFF TO PERFORM FREQUENT ROUNDING. YELLOW SOCKS, YELLOW GOWN AND YELLOW ARMBAND IN PLACE. FALL RISK SIGN PRESENT. BED IS LOCKED AND LOW, BED ALARMS ACTIVE, SIDE RAILS UPX2 AND PADDED, CALL LIGHT IS WITHIN REACH. WILL CONTINUE TO MONITOR.
[2020-01-11] VITALS (7 sets, daily range): BP systolic 137–172; BP diastolic 70–93
[2020-01-11] MEDS: guaiFENesin 100mg/5ml Liq ud ORAL PRN ×3 (05:18→20:45)
--- NOTE | 2020-01-11 06:55 | NUR ---
NURSE HAND-OFF: Important Events on Shift: Elevated blood pressure, called and left message with Dr. Moses. Patient reported that she stopped taking blood pressure medications at home d/t side effects, unable to recall name of medications. Patient also reported that she takes "herbal tea" at home to help lower BP. Patient showed RN the tea packaging, the brand is "[employer], blood pressure tea". Reinforced teaching on risks of elevated BP and lifestyle changes. Patient verbalized understanding. Will endorsed to upcoming RN to follow up with Dr. Moses. Patient Status: Stable Diet: Regular Pending Orders: N/A Pending Results/Labs: N/A Pending MD notification: Elevated BP Latest Vital Signs: Temperature 96.5 , Pulse 51 , B/P 172 /71 , Respiratory Rate 18 , O2 SAT 94 , Nasal Cannula, O2 Flow Rate 3.0 . Vital Sign Comment: Elevated BP Latest Elizondo Fall Score: 20 Fall Risk: Low Risk Safety Measures: Call light Within Reach, Bed Alarm Zone 2, Side Rails Side Rails x2, Bed position Low and Locked. Fall Precautions: Yellow Socks Yellow Gown Patient Fall Education
--- NOTE | 2020-01-11 07:14 | NUR ---
HAND-OFF: Report given to CRISTIANA Mark. Patient is stable. Endorsed POC.
--- NOTE | 2020-01-11 07:30 | NUR ---
NURSE NOTES: WALKING ROUNDS DONE WITH NIGHT RN. PATIENT AWAKE IN BED. QUESTIONS ANSWERED, NEEDS MET AT THIS TIME. DISCUSSED PLAN OF CARE FOR THE DAY. ACKNOWLEDGED UNDERSTANDING. BED IN LOW AND LOCKED POSITION. CALL LIGHT AND PERSONAL ITEMS WITHIN REACH.
[2020-01-11 08:01] LABS: BASOPHILS % (AUTO) 1.1 % (0.0-2.0); EOSINOPHILS % (AUTO) 0.1 % (0.0-3.0); HEMATOCRIT 40.1 % (37.0-47.0); HEMOGLOBIN 13.1 G/DL (12.0-16.0); LYMPHOCYTES % (AUTO) 28.9 % (20.0-45.0); MEAN CORPUSCULAR VOLUME 91 FL (80-99); NEUTROPHILS % (AUTO) 60.9 % (45.0-75.0); PLATELET COUNT 277 K/UL (150-450); WHITE BLOOD COUNT 6.3 K/UL (4.8-10.8)
[2020-01-11 08:35] LABS: ALANINE AMINOTRANSFERASE 106 U/L (12-78); ALBUMIN 2.5 G/DL (3.4-5.0); ALBUMIN/GLOBULIN RATIO 0.6 (1.0-2.7); ALKALINE PHOSPHATASE 56 U/L (46-116); ANION GAP 7 mmol/L (5-15); ASPARTATE AMINO TRANSFERASE 67 U/L (15-37); BILIRUBIN,DIRECT < 0.1 MG/DL (0.0-0.3); BILIRUBIN,TOTAL 0.2 MG/DL (0.2-1.0); BLOOD UREA NITROGEN 13 mg/dL (7-18); CALCIUM 8.2 MG/DL (8.5-10.1); CARBON DIOXIDE 28 MMOL/L (21-32); CHLORIDE 106 MMOL/L (98-107); CREATININE 0.7 MG/DL (0.55-1.30); POTASSIUM 4.1 MMOL/L (3.5-5.1); SODIUM 141 MMOL/L (136-145)
[2020-01-11] MEDS: Enoxaparin 80mg Inj SUBQ SCH ×2 (08:35→20:52)
--- NOTE | 2020-01-11 10:04 | Pulmonology Progress Note ---
Subjective ROS Limited/Unobtainable: No Interval Events: BP improved Constitutional: Denies: fever, chills HEENT: Repors: no symptoms Respiratory: Reports: other - mild intermittent non productive cough Gastrointestinal/Abdominal: Reports: diarrhea - mild; Denies: nausea, vomiting Musculoskeletal: Reports: pain - in back Allergies: Coded Allergies: No Known Allergies (Unverified , 07/20/17) Objective Last 24 Hour Vital Signs Date Time Temp Pulse Resp B/P (MAP) Pulse Ox O2 Delivery O2 Flow Rate FiO2 01/11/20 08:07 97.0 55 18 137/79 (98) 94 01/11/20 04:00 96.5 51 18 172/71 (104) 94 01/11/20 00:00 97.9 53 18 151/70 (97) 96 01/10/20 21:00 Nasal Cannula 3.0 01/10/20 20:00 97.9 61 17 179/89 (119) 96 01/10/20 16:00 97.5 58 18 142/75 (97) 99 01/10/20 12:00 97.7 64 18 160/95 (116) 95 Intake and Output 01/10/20 01/11/20 19:00 07:00 # Voids 4 # Bowel Movements 1 Objective 01/11/2020 pt sitting up in bed; saturating 94% on 3 lpm NC 01/10/2020 labs reviewed; saturating 95% on 2 lpm NC; pt sitting up in bed 01/09/2020 Labs reviewed; saturating 95-97% on 3 lpm NC General Appearance: no acute distress, other - sitting up in bed HEENT: normocephalic Respiratory: chest wall non-tender, rhonchi - bilaterally Abdomen: hernia - ventral, other - morbidly obese Extremities: other - edema in four extremities Laboratory Tests 01/11/20 04:00: White Blood Count 6.3, Red Blood Count 4.40, Hemoglobin 13.1, Hematocrit 40.1, Mean Corpuscular Volume 91, Mean Corpuscular Hemoglobin 29.7, Mean Corpuscular Hemoglobin Concent 32.6, Red Cell Distribution Width 14.0, Platelet Count 277, Mean Platelet Volume 7.5, Neutrophils (%) (Auto) 60.9, Lymphocytes (%) (Auto) 28.9, Monocytes (%) (Auto) 9.0, Eosinophils (%) (Auto) 0.1, Basophils (%) (Auto) 1.1, Sodium Level 141, Potassium Level 4.1, Chloride Level 106, Carbon Dioxide Level 28, Anion Gap 7, Blood Urea Nitrogen 13, Creatinine 0.7, Estimat Glomeru lar Filtration Rate > 60, Glucose Level 120H, Calcium Level 8.2L, Total Bilirubin 0.2, Direct Bilirubin < 0.1, Aspartate Amino Transf (AST/SGOT) 67H, Alanine Aminotransferase (ALT/SGPT) 106H, Alkaline Phosphatase 56, Total Protein 6.9, Albumin 2.5L, Globulin 4.4, Albumin/Globulin Ratio 0.6L Current Medications Medications (Trade) Dose Ordered Sig/Pawel Route PRN Reason Start Time Stop Time Status Last Admin Dose Admin Dexamethasone Sodium Phosphate (Decadron 4mg/ml vial) 6 mg DAILY IVP 01/09/20 09:00 01/17/20 08:59 01/11/20 08:35 Enoxaparin Sodium (Lovenox) 80 mg Q12HR SUBQ 01/09/20 09:00 04/08/20 08:59 01/11/20 08:35 Guaifenesin (Robitussin) 100 mg Q4H PRN ORAL For Cough 01/10/20 15:00 04/09/20 14:59 01/11/20 05:18 Remdesivir 100 mg/ Sodium Chloride 250 ml @ 250 mls/hr Q24H IV 01/09/20 15:00 01/12/20 15:59 01/10/20 15:10 Assessment/Plan Assessment/Plan 1. COVID-19 pneumonia. - On Decadron - Defer to ID regarding use of remdesivir 2. Bilateral pulmonary infiltrates. 3. Hypertension. - now 137/79 - She states no chest pain, weakness in extremities, SOB - Defer to cardio 4. DVT ppx - on Lovenox - venous duplex 01/09/2020 negative for DVT 5. Elevated LFT - AST 62 -> 67 - ALT 80 -> 106 I will follow carefully as documentation improvement specialist. Currently saturating well on nasal O2 The care for this patient was discussed with my supervising physician Seen and examined by Dr. Valerio as well The history of Klarissa Matt Riaz has been reviewed and management options for her have been examined and discussed by Jj Valerio. I have personally examined and interviewed the patient. Time spent for this case was approximately 31 minutes Pawel Sung Jan 11, 2020 10:04 Jj Valerio MD Jan 11, 2020 16:54
[2020-01-11] MEDS: Maintenance Dose:Remdesivir 100mg/NS 230ml x 4 Doses IV SCH ×2 (14:51)
--- NOTE | 2020-01-11 15:29 | NUR ---
NURSE NOTES: PATIENT REMAINS STABLE. CONTINUES TO HAVE NON-PRODUCTIVE COUGH. ROBITUSSIN GIVEN. PCP AWARE.VSS. AFEBRILE.
--- NOTE | 2020-01-11 19:26 | NUR ---
NURSE HAND-OFF: Important Events on Shift: N/A Patient Status: stable Diet: REGULAR Pending Orders: N/A Pending Results/Labs:N/A Pending MD notification:N/A Latest Vital Signs: Temperature 97.9 , Pulse 54 , B/P 156 /93 , Respiratory Rate 18 , O2 SAT 94 , Nasal Cannula, O2 Flow Rate 3.0 . Vital Sign Comment: N/A Latest Elizondo Fall Score: 35 Fall Risk: Medium Risk Safety Measures: Call light Within Reach, Bed Alarm Zone 2, Side Rails Side Rails x2, Bed position Low and Locked. Fall Precautions: Door Sign Patient Fall Education Report given to NAPOLEON LEON RN.
--- NOTE | 2020-01-11 20:02 | NUR ---
NURSE NOTES: patient in bed, awake, alert and verbally responsive. Able to make needs known. Respiration is even, noted with frequent cough, will give PRN medication. Abdomen is soft, large. Skin is intact, warm and dry to touch. Iv site noted. Bed in low and locked position. Provided safe environment. No complaint of pain or discomfort. Will continue plan of care. Call light is at bedside.
--- NOTE | 2020-01-11 21:00 | NUR ---
NURSE NOTES: Called Primary MD, regarding elevated blood pressure and pain, awaiting for call back.
[2020-01-12] VITALS (7 sets, daily range): BP systolic 132–180; BP diastolic 78–104
--- NOTE | 2020-01-12 02:40 | Cardiology Progress Note ---
Subjective DATE OF SERVICE: Jan 10, 2020 Saturating well on low flow O2 Appetite fair Glucose slightly elevated; no hx DM BP parameters increasing. Objective BP 179/89 p 58-64 R 18-20 Afebrile HEENT: normal ENT inspection LUNGS: bilateral rhonchi CARDIAC: normal rate, regular rhythm, normal S1 and S2 ABDOMEN: normal bowel sounds, non tender, soft, hernia, other - obese EXTREMITIES: No edema Laboratory Tests reviewed Assessment/Plan Assessment/Plan Covid 19 PNA Hypoxia Obesity Ventral hernia Steroid induced hyperglycemia Hypertension with elevated BP range Asymptomatic sinus bradycardia Steroids Lovenox Remdesivir O2 Insulin cov'g if further rise in glucose Add antiHTN meds prn only - expect improvement off steroids Abiel Moses MD Jan 12, 2020 02:40
--- NOTE | 2020-01-12 02:41 | Cardiology Progress Note ---
Subjective DATE OF SERVICE: Jan 11, 2020 Saturating well on low flow O2 Appetite fair Glucose slightly elevated; no hx DM BP parameters increasing. Objective Last 24 Hour Vital Signs Date Time Temp Pulse Resp B/P (MAP) Pulse Ox O2 Delivery O2 Flow Rate FiO2 01/11/20 23:33 98.0 59 18 164/86 (112) 97 01/11/20 21:00 Nasal Cannula 3.0 01/11/20 20:00 97.3 56 18 166/90 (115) 96 01/11/20 16:00 97.9 54 18 156/93 (114) 94 01/11/20 11:51 97.2 59 21 165/89 (114) 96 01/11/20 09:00 Nasal Cannula 3.0 01/11/20 08:07 97.0 55 18 137/79 (98) 94 01/11/20 04:00 96.5 51 18 172/71 (104) 94 HEENT: normal ENT inspection LUNGS: bilateral rhonchi CARDIAC: normal rate, regular rhythm, normal S1 and S2 ABDOMEN: normal bowel sounds, non tender, soft, hernia, other - obese EXTREMITIES: No edema Laboratory Tests Test 01/11/20 04:00 White Blood Count 6.3 K/UL (4.8-10.8) Red Blood Count 4.40 M/UL (4.20-5.40) Hemoglobin 13.1 G/DL (12.0-16.0) Hematocrit 40.1 % (37.0-47.0) Mean Corpuscular Volume 91 FL (80-99) Mean Corpuscular Hemoglobin 29.7 PG (27.0-31.0) Mean Corpuscular Hemoglobin Concent 32.6 G/DL (32.0-36.0) Red Cell Distribution Width 14.0 % (11.6-14.8) Platelet Count 277 K/UL (150-450) Mean Platelet Volume 7.5 FL (6.5-10.1) Neutrophils (%) (Auto) 60.9 % (45.0-75.0) Lymphocytes (%) (Auto) 28.9 % (20.0-45.0) Monocytes (%) (Auto) 9.0 % (1.0-10.0) Eosinophils (%) (Auto) 0.1 % (0.0-3.0) Basophils (%) (Auto) 1.1 % (0.0-2.0) Sodium Level 141 MMOL/L (136-145) Potassium Level 4.1 MMOL/L (3.5-5.1) Chloride Level 106 MMOL/L (98-107) Carbon Dioxide Level 28 MMOL/L (21-32) Anion Gap 7 mmol/L (5-15) Blood Urea Nitrogen 13 mg/dL (7-18) Creatinine 0.7 MG/DL (0.55-1.30) Estimat Glomerular Filtration Rate > 60 mL/min (>60) Glucose Level 120 MG/DL (74-106) H Calcium Level 8.2 MG/DL (8.5-10.1) L Total Bilirubin 0.2 MG/DL (0.2-1.0) Direct Bilirubin < 0.1 MG/DL (0.0-0.3) Aspartate Amino Transf (AST/SGOT) 67 U/L (15-37) H Alanine Aminotransferase (ALT/SGPT) 106 U/L (12-78) H Alkaline Phosphatase 56 U/L (46-116) Total Protein 6.9 G/DL (6.4-8.2) Albumin 2.5 G/DL (3.4-5.0) L Globulin 4.4 g/dL Albumin/Globulin Ratio 0.6 (1.0-2.7) L Assessment/Plan Assessment/Plan Covid 19 PNA Hypoxia Obesity Ventral hernia Steroid induced hyperglycemia Hypertension with elevated BP range Asymptomatic sinus bradycardia Steroids Lovenox Remdesivir O2 Insulin cov'g if further rise in glucose Add antiHTN meds prn only - expect improvement off steroids Abiel Moses MD Jan 12, 2020 02:41
[2020-01-12] MEDS: guaiFENesin 100mg/5ml Liq ud ORAL PRN ×2 (04:29→16:33)
[2020-01-12] MEDS: HydrALAZINE 25mg tab ORAL PRN ×2 (04:59→16:33)
--- NOTE | 2020-01-12 06:57 | NUR ---
NURSE HAND-OFF: Important Events on Shift:Hypertensive Patient Status: WNL Diet: REg Pending Orders: CBC, CMP Pending Results/Labs: Pending MD notification: Latest Vital Signs: Temperature 98.1 , Pulse 54 , B/P 155 /92 , Respiratory Rate 18 , O2 SAT 96 , Nasal Cannula, O2 Flow Rate 3.0 . Vital Sign Comment: Hypertensive Latest Elizondo Fall Score: 35 Fall Risk: Medium Risk Safety Measures: Call light Within Reach, Bed Alarm Zone 2, Side Rails Side Rails x2, Bed position Low and Locked. Fall Precautions: Door Sign Patient Fall Education Report given to CRISTIANA Walker.
--- NOTE | 2020-01-12 07:34 | NUR ---
NURSE NOTES: Pt. received from CRISTIANA Mantilla. Pt. AAOx4, breathing even and unlabored on 4L NC, no indications of SOB, no active complaints of pain at this time. IV noted right hand 20g, intact and patent, saline locked. Bed low and locked, side rails x2 up, and call light in reach.
[2020-01-12 07:56] LABS: ALANINE AMINOTRANSFERASE 101 U/L (12-78); ALBUMIN 2.5 G/DL (3.4-5.0); ALBUMIN/GLOBULIN RATIO 0.6 (1.0-2.7); ALKALINE PHOSPHATASE 52 U/L (46-116); ANION GAP 4 mmol/L (5-15); ASPARTATE AMINO TRANSFERASE 44 U/L (15-37); BILIRUBIN,DIRECT 0.1 MG/DL (0.0-0.3); BILIRUBIN,TOTAL 0.3 MG/DL (0.2-1.0); BLOOD UREA NITROGEN 12 mg/dL (7-18); CALCIUM 8.1 MG/DL (8.5-10.1); CARBON DIOXIDE 30 MMOL/L (21-32); CHLORIDE 107 MMOL/L (98-107); CREATININE 0.7 MG/DL (0.55-1.30); POTASSIUM 3.4 MMOL/L (3.5-5.1); SODIUM 141 MMOL/L (136-145)
[2020-01-12 08:01] LABS: HEMATOCRIT 40.9 % (37.0-47.0); HEMOGLOBIN 13.6 G/DL (12.0-16.0); MEAN CORPUSCULAR VOLUME 91 FL (80-99); PLATELET COUNT 282 K/UL (150-450); RED BLOOD COUNT 4.51 M/UL (4.20-5.40); RED CELL DISTRIBUTION WIDTH 13.8 % (11.6-14.8); WHITE BLOOD COUNT 7.5 K/UL (4.8-10.8)
[2020-01-12] MEDS: Enoxaparin 80mg Inj SUBQ SCH ×2 (08:20→20:31)
--- NOTE | 2020-01-12 08:51 | Pulmonology Progress Note ---
Subjective ROS Limited/Unobtainable: No Interval Events: SOB overnight when her nasal canula was out of place during sleep; resolved Constitutional: Denies: fever, chills HEENT: Repors: no symptoms Respiratory: Reports: other - mild intermittent non productive cough- better with robitussin Gastrointestinal/Abdominal: Denies: nausea, vomiting Musculoskeletal: Reports: pain - in back Allergies: Coded Allergies: No Known Allergies (Unverified , 07/20/17) Objective Last 24 Hour Vital Signs Date Time Temp Pulse Resp B/P (MAP) Pulse Ox O2 Delivery O2 Flow Rate FiO2 01/12/20 05:00 155/92 (113) 01/12/20 04:59 162/97 01/12/20 04:00 98.1 54 18 162/97 (118) 96 01/11/20 23:33 98.0 59 18 164/86 (112) 97 01/11/20 21:00 Nasal Cannula 3.0 01/11/20 20:00 97.3 56 18 166/90 (115) 96 01/11/20 16:00 97.9 54 18 156/93 (114) 94 01/11/20 11:51 97.2 59 21 165/89 (114) 96 01/11/20 09:00 Nasal Cannula 3.0 Intake and Output 01/11/20 01/12/20 19:00 07:00 Intake Total 970 ml 1200 ml Balance 970 ml 1200 ml Intake Oral 720 ml 1200 ml IV Total 250 ml # Voids 3 3 Objective 01/12/2020 pt sitting up in bed; saturating 96% on 3 lpm NC 01/11/2020 pt sitting up in bed; saturating 94% on 3 lpm NC 01/10/2020 labs reviewed; saturating 95% on 2 lpm NC; pt sitting up in bed 01/09/2020 Labs reviewed; saturating 95-97% on 3 lpm NC General Appearance: no acute distress, other - sitting up in bed HEENT: normocephalic Respiratory: chest wall non-tender, rhonchi - bilaterally Abdomen: hernia - ventral, other - morbidly obese Extremities: other - edema in four extremities Laboratory Tests 01/12/20 06:55: White Blood Count 7.5, Red Blood Count 4.51, Hemoglobin 13.6, Hematocrit 40.9, Mean Corpuscular Volume 91, Mean Corpuscular Hemoglobin 30.2, Mean Corpuscular Hemoglobin Concent 33.3, Red Cell Distribution Width 13.8, Platelet Count 282, Mean Platelet Volume 7.0, Neutrophils (%) (Auto) , Lymphocytes (%) (Auto) , Monocytes (%) (Auto) , Eosinophils (%) (Auto) , Basophils (%) (Auto) , Neutrophils % (Manual) [Pending], Lymphocytes % (Manual) [Pending], Platelet Estimate [Pending], Platelet Morphology [Pending], Sodium Level 141, Potassium Level 3.4L, Chloride Level 107, Carbon Dioxide Level 30, Anion Gap 4L, Blood Urea Nitrogen 12, Creatinine 0.7, Estimat Glomerular Filtration Rate > 60, Glucose Level 113H, Calcium Level 8.1L, Magnesium Level 2.0, Total Bilirubin 0.3, Direct Bilirubin 0.1, Aspartate Amino Transf (AST/SGOT) 44H, Alanine Aminotransferase (ALT/SGPT) 101H, Alkaline Phosphatase 52, Pro-B-Type Natriuretic Peptide 374H, Total Protein 6.7, Albumin 2.5L, Globulin 4.2, Albumin/Globulin Ratio 0.6L Current Medications Medications (Trade) Dose Ordered Sig/Pawel Route PRN Reason Start Time Stop Time Status Last Admin Dose Admin Dexamethasone Sodium Phosphate (Decadron 4mg/ml vial) 6 mg DAILY IVP 01/09/20 09:00 01/17/20 08:59 01/12/20 08:19 Enoxaparin Sodium (Lovenox) 80 mg Q12HR SUBQ 01/09/20 09:00 04/08/20 08:59 01/12/20 08:20 Guaifenesin (Robitussin) 100 mg Q4H PRN ORAL For Cough 01/10/20 15:00 04/09/20 14:59 01/12/20 04:29 Hydralazine HCl (Apresoline) 25 mg Q6H PRN ORAL SBP above 150 01/12/20 02:45 04/11/20 02:44 01/12/20 04:59 Remdesivir 100 mg/ Sodium Chloride 250 ml @ 250 mls/hr Q24H IV 01/09/20 15:00 01/12/20 15:59 01/11/20 14:51 Assessment/Plan Assessment/Plan 1. COVID-19 pneumonia. - On Decadron - Defer to ID regarding use of remdesivir 2. Bilateral pulmonary infiltrates. 3. Hypertension. - elevated; s/p hydralazine prn per cardio - She states no chest pain, weakness in extremities, SOB - Defer to cardio 4. DVT ppx - on Lovenox - venous duplex 01/09/2020 negative for DVT 5. Elevated LFT - AST 62 -> 67 -> 44 - ALT 80 -> 106 -> 101 We will follow carefully as coater hand. The care for this patient was discussed with my supervising physician The history of Klarissa Barnes has been reviewed and management options for her have been examined and discussed by Jj Valerio. I have personally examined and interviewed the patient. Time spent for this case was approximately 31 minutes Pawel Sung Jan 12, 2020 08:51 Jj Valerio MD Jan 12, 2020 17:35
--- NOTE | 2020-01-12 10:23 | Diagnostic Imaging Report ---
Procedure: XRAY Chest 1v Reason for study: Shortness of breath. Comparison films: None. FINDINGS: Radiograph is very limited and extremely underpenetrated. Slight increase in bilateral alveolar densities although this may be exaggerated by underpenetrated technique. Cardiac and mediastinal silhouette are within normal limits. CP angles are sharp. The bony thorax appear unremarkable. IMPRESSION: Very limited study. Possible slight increase in bilateral alveolar densities although this may be exaggerated by underpenetrated technique.
--- NOTE | 2020-01-12 11:45 | Infectious Diseases Prog Note ---
Assessment/Plan Assessment/Plan antibiotics : remdesivir A 1. COVID 19 pneumonia on 3 liters O2, 96 % saturation 2. hypertension 3. obesity 4. ventral hernia P 1. complete remdesivir day 5 2. continue dexamethsone day 5 3. continue isolation Subjective Constitutional: Denies: fever, chills Respiratory: Reports: shortness of breath - decreased, dry cough - decreased Gastrointestinal/Abdominal: Denies: nausea, vomiting, diarrhea Musculoskeletal: Denies: pain Allergies: Coded Allergies: No Known Allergies (Unverified , 07/20/17) Objective Last 24 Hour Vital Signs Date Time Temp Pulse Resp B/P (MAP) Pulse Ox O2 Delivery O2 Flow Rate FiO2 01/12/20 09:00 Nasal Cannula 2.0 01/12/20 08:00 97.9 53 19 157/80 (105) 91 01/12/20 05:00 155/92 (113) 01/12/20 04:59 162/97 01/12/20 04:00 98.1 54 18 162/97 (118) 96 01/11/20 23:33 98.0 59 18 164/86 (112) 97 01/11/20 21:00 Nasal Cannula 3.0 01/11/20 20:00 97.3 56 18 166/90 (115) 96 01/11/20 16:00 97.9 54 18 156/93 (114) 94 01/11/20 11:51 97.2 59 21 165/89 (114) 96 Height (Feet): 5 Height (Inches): 5.00 Weight (Pounds): 380 Laboratory Tests Test 01/12/20 06:55 White Blood Count 7.5 K/UL (4.8-10.8) Red Blood Count 4.51 M/UL (4.20-5.40) Hemoglobin 13.6 G/DL (12.0-16.0) Hematocrit 40.9 % (37.0-47.0) Mean Corpuscular Volume 91 FL (80-99) Mean Corpuscular Hemoglobin 30.2 PG (27.0-31.0) Mean Corpuscular Hemoglobin Concent 33.3 G/DL (32.0-36.0) Red Cell Distribution Width 13.8 % (11.6-14.8) Platelet Count 282 K/UL (150-450) Mean Platelet Volume 7.0 FL (6.5-10.1) Neutrophils (%) (Auto) % (45.0-75.0) Lymphocytes (%) (Auto) % (20.0-45.0) Monocytes (%) (Auto) % (1.0-10.0) Eosinophils (%) (Auto) % (0.0-3.0) Basophils (%) (Auto) % (0.0-2.0) Differential Total Cells Counted 100 Neutrophils % (Manual) 66 % (45-75) Lymphocytes % (Manual) 30 % (20-45) Monocytes % (Manual) 4 % (1-10) Eosinophils % (Manual) 0 % (0-3) Basophils % (Manual) 0 % (0-2) Band Neutrophils 0 % (0-8) Platelet Estimate Adequate Platelet Morphology Normal Red Blood Cell Morphology Normal Sodium Level 141 MMOL/L (136-145) Potassium Level 3.4 MMOL/L (3.5-5.1) L Chloride Level 107 MMOL/L (98-107) Carbon Dioxide Level 30 MMOL/L (21-32) Anion Gap 4 mmol/L (5-15) L Blood Urea Nitrogen 12 mg/dL (7-18) Creatinine 0.7 MG/DL (0.55-1.30) Estimat Glomerular Filtration Rate > 60 mL/min (>60) Glucose Level 113 MG/DL (74-106) H Calcium Level 8.1 MG/DL (8.5-10.1) L Magnesium Level 2.0 MG/DL (1.8-2.4) Total Bilirubin 0.3 MG/DL (0.2-1.0) Direct Bilirubin 0.1 MG/DL (0.0-0.3) Aspartate Amino Transf (AST/SGOT) 44 U/L (15-37) H Alanine Aminotransferase (ALT/SGPT) 101 U/L (12-78) H Alkaline Phosphatase 52 U/L (46-116) Pro-B-Type Natriuretic Peptide 374 pg/mL (0-125) H Total Protein 6.7 G/DL (6.4-8.2) Albumin 2.5 G/DL (3.4-5.0) L Globulin 4.2 g/dL Albumin/Globulin Ratio 0.6 (1.0-2.7) L Current Medications Medications (Trade) Dose Ordered Sig/Pawel Route PRN Reason Start Time Stop Time Status Last Admin Dose Admin Dexamethasone Sodium Phosphate (Decadron 4mg/ml vial) 6 mg DAILY IVP 01/09/20 09:00 01/17/20 08:59 01/12/20 08:19 Enoxaparin Sodium (Lovenox) 80 mg Q12HR SUBQ 01/09/20 09:00 04/08/20 08:59 01/12/20 08:20 Guaifenesin (Robitussin) 100 mg Q4H PRN ORAL For Cough 01/10/20 15:00 04/09/20 14:59 01/12/20 04:29 Hydralazine HCl (Apresoline) 25 mg Q6H PRN ORAL SBP above 150 01/12/20 02:45 04/11/20 02:44 01/12/20 04:59 Remdesivir 100 mg/ Sodium Chloride 250 ml @ 250 mls/hr Q24H IV 01/09/20 15:00 01/12/20 15:59 01/11/20 14:51 Eric Bergman MD Jan 12, 2020 11:45
[2020-01-12] MEDS: Maintenance Dose:Remdesivir 100mg/NS 230ml x 4 Doses IV SCH ×2 (14:56)
--- NOTE | 2020-01-12 16:36 | NUR ---
CASE MANAGEMENT:REVIEW 01/12/20 SI: COVID PNA 98.0 86 20 172/102 95% ON 2L/NC AST/ALT+44/101 IS: IV REMSEIVIR Q24 (06/09) IV DECADRON QD LOVENOX SQ Q12 HYDRALAZINE 25MG PO Q6HRS PRN : MED/SURG STATUS' DCP: FROM HOME PLAN: TRYING TO WEAN OXYGEN. YESTERDAY WAS ON 3L....TODAY 2L
--- NOTE | 2020-01-12 18:05 | NUR ---
NURSE NOTES: Pt. HTN 172/102, administered ordered PRN HTN medications, BP 200/100 using automatic and manual cuff, pt. reports feeling "fine," asymptomatic on 2L NC, awake and alert. Charge nurse aware, Dr. Moses called and notified. Awaiting return call and orders.
--- NOTE | 2020-01-12 18:30 | NUR ---
NURSE NOTES: Orders received from Dr. Moses and carried out.
--- NOTE | 2020-01-12 19:15 | NUR ---
NURSE HAND-OFF: Important Events on Shift:[]HTN reported to Dr. Moses, orders received and carried out. Patient Status: stable, comfortable Diet: regular Pending Orders: na Pending Results/Labs:na Pending MD notification:na Latest Vital Signs: Temperature 97.7 , Pulse 58 , B/P 173 /89 , Respiratory Rate 20 , O2 SAT 96 , Nasal Cannula, O2 Flow Rate 2.0 . Vital Sign Comment: HTN, primary MD notified Latest Elizondo Fall Score: 35 Fall Risk: Medium Risk Safety Measures: Call light Within Reach, Bed Alarm Zone 2, Side Rails Side Rails x2, Bed position Low and Locked. Fall Precautions: Door Sign Patient Fall Education Report given to CRISTIANA Heredia.
--- NOTE | 2020-01-12 19:39 | NUR ---
NURSE NOTES: Received report from CRISTIANA Ken. AAO x 4, on NC 2L, ambulatory. Iv site intact. Denies pain, SOB, or discomfort. Monitor HTN. Bed locked, lowest position, alarm on, side rails up, call light within reach. Will continue to monitor.
--- NOTE | 2020-01-12 19:43 | Cardiology Progress Note ---
Subjective DATE OF SERVICE: Jan 12, 2020 Saturating well on low flow O2 Appetite fair Glucose slightly elevated; no hx DM BP parameters increasing further. BNP increased to 374. Objective Last 24 Hour Vital Signs Date Time Temp Pulse Resp B/P (MAP) Pulse Ox O2 Delivery O2 Flow Rate FiO2 01/12/20 18:38 58 173/89 01/12/20 18:03 173/89 (117) 01/12/20 16:33 172/102 01/12/20 16:00 97.7 84 20 172/102 (125) 96 01/12/20 12:00 98.0 86 20 132/78 (96) 95 01/12/20 09:00 Nasal Cannula 2.0 01/12/20 08:00 97.9 53 19 157/80 (105) 91 01/12/20 05:00 155/92 (113) 01/12/20 04:59 162/97 01/12/20 04:00 98.1 54 18 162/97 (118) 96 01/11/20 23:33 98.0 59 18 164/86 (112) 97 01/11/20 21:00 Nasal Cannula 3.0 01/11/20 20:00 97.3 56 18 166/90 (115) 96 HEENT: normal ENT inspection LUNGS: bilateral rhonchi CARDIAC: normal rate, regular rhythm, normal S1 and S2 ABDOMEN: normal bowel sounds, non tender, soft, hernia, other - obese EXTREMITIES: No edema Laboratory Tests Test 01/12/20 06:55 White Blood Count 7.5 K/UL (4.8-10.8) Red Blood Count 4.51 M/UL (4.20-5.40) Hemoglobin 13.6 G/DL (12.0-16.0) Hematocrit 40.9 % (37.0-47.0) Mean Corpuscular Volume 91 FL (80-99) Mean Corpuscular Hemoglobin 30.2 PG (27.0-31.0) Mean Corpuscular Hemoglobin Concent 33.3 G/DL (32.0-36.0) Red Cell Distribution Width 13.8 % (11.6-14.8) Platelet Count 282 K/UL (150-450) Mean Platelet Volume 7.0 FL (6.5-10.1) Neutrophils (%) (Auto) % (45.0-75.0) Lymphocytes (%) (Auto) % (20.0-45.0) Monocytes (%) (Auto) % (1.0-10.0) Eosinophils (%) (Auto) % (0.0-3.0) Basophils (%) (Auto) % (0.0-2.0) Differential Total Cells Counted 100 Neutrophils % (Manual) 66 % (45-75) Lymphocytes % (Manual) 30 % (20-45) Monocytes % (Manual) 4 % (1-10) Eosinophils % (Manual) 0 % (0-3) Basophils % (Manual) 0 % (0-2) Band Neutrophils 0 % (0-8) Platelet Estimate Adequate Platelet Morphology Normal Red Blood Cell Morphology Normal Sodium Level 141 MMOL/L (136-145) Potassium Level 3.4 MMOL/L (3.5-5.1) L Chloride Level 107 MMOL/L (98-107) Carbon Dioxide Level 30 MMOL/L (21-32) Anion Gap 4 mmol/L (5-15) L Blood Urea Nitrogen 12 mg/dL (7-18) Creatinine 0.7 MG/DL (0.55-1.30) Estimat Glomerular Filtration Rate > 60 mL/min (>60) Glucose Level 113 MG/DL (74-106) H Calcium Level 8.1 MG/DL (8.5-10.1) L Magnesium Level 2.0 MG/DL (1.8-2.4) Total Bilirubin 0.3 MG/DL (0.2-1.0) Direct Bilirubin 0.1 MG/DL (0.0-0.3) Aspartate Amino Transf (AST/SGOT) 44 U/L (15-37) H Alanine Aminotransferase (ALT/SGPT) 101 U/L (12-78) H Alkaline Phosphatase 52 U/L (46-116) Pro-B-Type Natriuretic Peptide 374 pg/mL (0-125) H Total Protein 6.7 G/DL (6.4-8.2) Albumin 2.5 G/DL (3.4-5.0) L Globulin 4.2 g/dL Albumin/Globulin Ratio 0.6 (1.0-2.7) L Assessment/Plan Assessment/Plan Covid 19 PNA Hypoxia Obesity Ventral hernia Steroid induced hyperglycemia Hypertension with elevated BP range Asymptomatic sinus bradycardia Steroids per ID Lovenox Remdesivir per ID O2 Insulin cov'g if further rise in glucose Add antiHTN therapy. Diuresis trial Abiel Moses MD Jan 12, 2020 19:43
[2020-01-13] VITALS: BP 150/76
[2020-01-13] MEDS: guaiFENesin 100mg/5ml Liq ud ORAL PRN (00:44)
[2020-01-13] MEDS: HydrALAZINE 25mg tab ORAL PRN ×2 (00:44→20:59)
[2020-01-13 04:00] VITALS: BP 136/79
--- NOTE | 2020-01-13 06:01 | NUR ---
NURSE HAND-OFF: Important Events on Shift:HTN, bradycardia Patient Status: stable Diet: reg Pending Orders: Pending Results/Labs: Pending MD notification: Latest Vital Signs: Temperature 97.0 , Pulse 48 , B/P 136 /79 , Respiratory Rate 18 , O2 SAT 97 , Nasal Cannula, O2 Flow Rate 2.0 . Vital Sign Comment: [] Latest Elizondo Fall Score: 35 Fall Risk: Medium Risk Safety Measures: Call light Within Reach, Bed Alarm Zone 1, Side Rails Side Rails x2, Bed position Low and Locked. Fall Precautions: Door Sign Patient Fall Education Addendum: 01/13/20 at 0736 by YARELIS PALMER RN RN HAND-OFF: Report given to
--- NOTE | 2020-01-13 07:45 | NUR ---
NURSE NOTES: received report from CRISTIANA Heredia. Pt. A&Ox4 on 2L NC, breathing even and unlabored, no SOB, Denied pain at this time. IV noted right hand 20g, intact and patent, saline locked. Bed low and locked, side rails x2 up, call light in reach. Will continue to monitor.
[2020-01-13 08:00] VITALS: BP 143/70
[2020-01-13] MEDS: Enoxaparin 80mg Inj SUBQ SCH ×2 (08:54→21:01)
--- NOTE | 2020-01-13 10:12 | NUR ---
RD ASSESSMENT & RECOMMENDATIONS SEE CARE ACTIVITY FOR COMPLETE ASSESSMENT DAILY ESTIMATED NEEDS: Needs based on Obesity, pulmonary/ 86kg abw 18-20 kcals/kg 9738-0009 total kcals 1-1.5 g protein/kg 86-129 g total protein 20-25 mL/kg 5562-9685 total fluid mLs NUTRITION DIAGNOSIS: * Altered nutrition related levels r/t clinical condition, on steroidal med, cardiac hx as evidenced by mildly elev FBGs (113 120 125), elev LFTs, elev BPs (180/104, 172/102). CURRENT DIET:REGULAR PO DIET RECOMMENDATIONS: LOW NA ADDITIONAL RECOMMENDATIONS: * Standing wt as able for accurate CBW * Monitor BGs, need for carb controlled diet or NISS while on Decadron * Check A1C for eval of glycemic control * Monitor lytes, replete as needed (low K)
--- NOTE | 2020-01-13 10:23 | Pulmonology Progress Note ---
Subjective ROS Limited/Unobtainable: No Interval Events: SOB overnight when her nasal canula was out of place during sleep; resolved Constitutional: Denies: fever, chills HEENT: Repors: no symptoms; Denies: visual change Respiratory: Reports: productive cough, other - mild intermittent non productive cough- better with robitussin Cardiovascular: Denies: chest pain, palpitations Gastrointestinal/Abdominal: Reports: other - pain in the areas of ventral hernia while coughing; Denies: nausea, vomiting Musculoskeletal: Reports: pain - in back Allergies: Coded Allergies: No Known Allergies (Unverified , 07/20/17) Objective Last 24 Hour Vital Signs Date Time Temp Pulse Resp B/P (MAP) Pulse Ox O2 Delivery O2 Flow Rate FiO2 01/13/20 08:52 61 143/70 01/13/20 04:00 97.0 48 18 136/79 (98) 97 01/13/20 00:44 150/76 01/13/20 00:00 97.7 50 18 150/76 (100) 94 01/12/20 21:00 Nasal Cannula 2.0 01/12/20 20:00 97.7 54 20 180/104 (129) 95 01/12/20 18:38 58 173/89 01/12/20 18:03 173/89 (117) 01/12/20 16:33 172/102 01/12/20 16:00 97.7 84 20 172/102 (125) 96 01/12/20 12:00 98.0 86 20 132/78 (96) 95 Intake and Output 01/12/20 01/13/20 19:00 07:00 Intake Total 1210 ml Balance 1210 ml Intake Oral 960 ml IV Total 250 ml # Voids 5 3 # Bowel Movements 1 Objective 01/13/2020 labs reviewed; well saturated on low flow oxygen 01/12/2020 pt sitting up in bed; saturating 96% on 3 lpm NC 01/11/2020 pt sitting up in bed; saturating 94% on 3 lpm NC 01/10/2020 labs reviewed; saturating 95% on 2 lpm NC; pt sitting up in bed 01/09/2020 Labs reviewed; saturating 95-97% on 3 lpm NC General Appearance: no acute distress HEENT: normocephalic, atraumatic Respiratory: chest wall non-tender, rhonchi - bilaterally Cardiovascular: regular rhythm, bradycardia Abdomen: soft, non tender, hernia - ventral, other - morbidly obese Extremities: other - edema in four extremities Current Medications Medications (Trade) Dose Ordered Sig/Pawel Route PRN Reason Start Time Stop Time Status Last Admin Dose Admin Amlodipine Besylate (Norvasc) 5 mg DAILY ORAL 01/12/20 18:30 02/11/20 18:29 01/13/20 08:52 Dexamethasone Sodium Phosphate (Decadron 4mg/ml vial) 6 mg DAILY IVP 01/09/20 09:00 01/17/20 08:59 01/13/20 08:51 Enoxaparin Sodium (Lovenox) 80 mg Q12HR SUBQ 01/09/20 09:00 04/08/20 08:59 01/13/20 08:54 Guaifenesin (Robitussin) 100 mg Q4H PRN ORAL For Cough 01/10/20 15:00 04/09/20 14:59 01/13/20 00:44 Hydralazine HCl (Apresoline) 25 mg Q6H PRN ORAL SBP above 150 01/12/20 02:45 04/11/20 02:44 01/13/20 00:44 Assessment/Plan Assessment/Plan 1. COVID-19 pneumonia. - On Decadron - Defer to ID regarding use of remdesivir 2. Bilateral pulmonary infiltrates. 3. Hypertension. - elevated; s/p hydralazine prn per cardio - on diuresis trial per cardio - She states no chest pain, weakness in extremities, SOB - Defer to cardio 4. DVT ppx - on Lovenox - venous duplex 01/09/2020 negative for DVT 5. 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 The care for this patient was discussed with my supervising physician Time spent for this case was approximately 31 minutes The patient was seen and examined at bedside and all new and available data was reviewed in the patients chart. I agree with the above findings, impression, and plan. (Patient was seen earlier today. Signature timestamp does not reflect patient encounter time) Pawel Santacruz MD Jan 13, 2020 10:23 Jj Valerio MD Jan 13, 2020 16:27
--- NOTE | 2020-01-13 11:25 | Infectious Diseases Prog Note ---
Assessment/Plan Assessment/Plan antibiotics : none A 1. COVID 19 pneumonia on 2 liters O2, 95 % saturation s/p remdesivir 2. hypertension 3. obesity 4. ventral hernia P 1. continue dexamethsone day 6 2. continue isolation Subjective Constitutional: Denies: fever, chills Respiratory: Reports: shortness of breath - decreased, dry cough - decreased Gastrointestinal/Abdominal: Denies: nausea, vomiting, diarrhea Musculoskeletal: Denies: pain Allergies: Coded Allergies: No Known Allergies (Unverified , 07/20/17) Objective Last 24 Hour Vital Signs Date Time Temp Pulse Resp B/P (MAP) Pulse Ox O2 Delivery O2 Flow Rate FiO2 01/13/20 09:00 Nasal Cannula 2.0 01/13/20 08:52 61 143/70 01/13/20 08:00 97.9 61 18 143/70 (94) 95 01/13/20 04:00 97.0 48 18 136/79 (98) 97 01/13/20 00:44 150/76 01/13/20 00:00 97.7 50 18 150/76 (100) 94 01/12/20 21:00 Nasal Cannula 2.0 01/12/20 20:00 97.7 54 20 180/104 (129) 95 01/12/20 18:38 58 173/89 01/12/20 18:03 173/89 (117) 01/12/20 16:33 172/102 01/12/20 16:00 97.7 84 20 172/102 (125) 96 01/12/20 12:00 98.0 86 20 132/78 (96) 95 Height (Feet): 5 Height (Inches): 5.00 Weight (Pounds): 380 Current Medications Medications (Trade) Dose Ordered Sig/Pawel Route PRN Reason Start Time Stop Time Status Last Admin Dose Admin Amlodipine Besylate (Norvasc) 5 mg DAILY ORAL 01/12/20 18:30 02/11/20 18:29 01/13/20 08:52 Dexamethasone Sodium Phosphate (Decadron 4mg/ml vial) 6 mg DAILY IVP 01/09/20 09:00 01/17/20 08:59 01/13/20 08:51 Enoxaparin Sodium (Lovenox) 80 mg Q12HR SUBQ 01/09/20 09:00 04/08/20 08:59 01/13/20 08:54 Guaifenesin (Robitussin) 100 mg Q4H PRN ORAL For Cough 01/10/20 15:00 04/09/20 14:59 01/13/20 00:44 Hydralazine HCl (Apresoline) 25 mg Q6H PRN ORAL SBP above 150 01/12/20 02:45 04/11/20 02:44 01/13/20 00:44 Eric Bergman MD Jan 13, 2020 11:25
[2020-01-13 12:00] VITALS: BP 137/70
--- NOTE | 2020-01-13 12:08 | NUR ---
CASE MANAGEMENT:REVIEW 01/13/20 SI: COVID PNA 97.9 61 18 143/70 95% ON 2L/NC IS: IV REMSEIVIR Q24 (06/09) IV DECADRON QD LOVENOX SQ Q12 HYDRALAZINE 25MG PO Q6HRS PRN : MED/SURG STATUS' DCP: FROM HOME PLAN: COMPLETED REMDESIVIR WAITING FOR MD TO MAKE ROUNDS
--- NOTE | 2020-01-13 12:18 | NUR ---
DISCHARGE PLANNING BED SIDE NURSE STATED PATIENT WAS SATURATING 93% ON ROOM PER DR ANAND PATIENT IS CLEARED FOR DISCHARGE
[2020-01-13 16:00] VITALS: BP 145/72
--- NOTE | 2020-01-13 19:14 | NUR ---
NURSE HAND-OFF: Important Events on Shift:[off Oxygen, 93% in room air. planning to discharge tomorrow] Patient Status: [stable] Diet: [reg] Pending Orders: [] Pending Results/Labs:[] Pending MD notification:[] Latest Vital Signs: Temperature 97.8 , Pulse 54 , B/P 145 /72 , Respiratory Rate 18 , O2 SAT 92 , Room Air, O2 Flow Rate 2.0 . Vital Sign Comment: [] Latest Elizondo Fall Score: 35 Fall Risk: Medium Risk Safety Measures: Call light Within Reach, Bed Alarm Zone 1, Side Rails Side Rails x2, Bed position Low and Locked. Fall Precautions: Door Sign Patient Fall Education Report given to [CRISTIANA Au].
--- NOTE | 2020-01-13 19:30 | NUR ---
NURSE NOTES: Received patient in no apparent distress. A&OX4. IV site patent and intact. Bed in lowest position. Call light within reach. Will continue to monitor.
[2020-01-13 20:00] VITALS: BP 157/95
[2020-01-14] VITALS: BP 166/80
--- NOTE | 2020-01-14 02:19 | Cardiology Progress Note ---
Subjective DATE OF SERVICE: Jan 13, 2020 Saturating at 92-93% on room air now. No SOB. Glucose slightly elevated on steroids. BP parameters stable Objective Last 24 Hour Vital Signs Date Time Temp Pulse Resp B/P (MAP) Pulse Ox O2 Delivery O2 Flow Rate FiO2 01/14/20 00:00 97.7 54 18 166/80 (108) 93 01/13/20 21:00 Room Air 01/13/20 20:59 157/95 01/13/20 20:00 98.1 63 18 157/95 (115) 93 01/13/20 16:00 97.8 54 18 145/72 (96) 92 01/13/20 12:52 Room Air 01/13/20 12:00 97.7 55 18 137/70 (92) 92 01/13/20 09:00 Nasal Cannula 2.0 01/13/20 08:52 61 143/70 01/13/20 08:00 97.9 61 18 143/70 (94) 95 01/13/20 04:00 97.0 48 18 136/79 (98) 97 HEENT: normal ENT inspection LUNGS: bilateral rhonchi CARDIAC: normal rate, regular rhythm, normal S1 and S2 ABDOMEN: normal bowel sounds, non tender, soft, hernia, other - obese EXTREMITIES: No edema Assessment/Plan Assessment/Plan Covid 19 PNA Hypoxia Obesity Ventral hernia Steroid induced hyperglycemia Hypertension with elevated BP range Asymptomatic sinus bradycardia Steroids until dischg DVT prophyl Remdesivir completed Off O2 now Insulin cov'g if further rise in glucose Maintain antiHTN therapy. DC planning Abiel Moses MD Jan 14, 2020 02:19
[2020-01-14] MEDS ORDERED: GUAIFENESI100 MG/5 M ORAL (02:22)
[2020-01-14] MEDS ORDERED: NORVASC5 MG ORAL (02:22)
[2020-01-14 04:00] VITALS: BP 148/70
[2020-01-14 07:21] LABS: ANION GAP 6 mmol/L (5-15); BLOOD UREA NITROGEN 12 mg/dL (7-18); CALCIUM 8.5 MG/DL (8.5-10.1); CARBON DIOXIDE 31 MMOL/L (21-32); CHLORIDE 105 MMOL/L (98-107); CREATININE 0.7 MG/DL (0.55-1.30); POTASSIUM 3.6 MMOL/L (3.5-5.1); SODIUM 141 MMOL/L (136-145)
--- NOTE | 2020-01-14 07:28 | NUR ---
NURSE HAND-OFF: Important Events on Shift: Patient Status: Diet: Pending Orders: Pending Results/Labs: Pending MD notification: Latest Vital Signs: Temperature 97.5 , Pulse 54 , B/P 148 /70 , Respiratory Rate 18 , O2 SAT 94 , Room Air, O2 Flow Rate 2.0 . Vital Sign Comment: Latest Elizondo Fall Score: 35 Fall Risk: Medium Risk Safety Measures: Call light Within Reach, Bed Alarm Zone 1, Side Rails Side Rails x2, Bed position Low and Locked. Fall Precautions: Door Sign Patient Fall Education Report given to Jihan ZENDEJAS.
[2020-01-14 08:00] VITALS: BP 156/88
--- NOTE | 2020-01-14 08:21 | Pulmonology Progress Note ---
Subjective ROS Limited/Unobtainable: No Interval Events: none new Constitutional: Denies: fever, chills HEENT: Repors: no symptoms; Denies: visual change Respiratory: Reports: dry cough, other - mild intermittent non productive cough- better with robitussin Cardiovascular: Denies: chest pain, palpitations Gastrointestinal/Abdominal: Reports: other - pain in the areas of ventral hernia while coughing; Denies: nausea, vomiting Musculoskeletal: Reports: pain - in back Allergies: Coded Allergies: No Known Allergies (Unverified , 07/20/17) Objective Last 24 Hour Vital Signs Date Time Temp Pulse Resp B/P (MAP) Pulse Ox O2 Delivery O2 Flow Rate FiO2 01/14/20 04:00 97.5 54 18 148/70 (96) 94 01/14/20 00:00 97.7 54 18 166/80 (108) 93 01/13/20 21:00 Room Air 01/13/20 20:59 157/95 01/13/20 20:00 98.1 63 18 157/95 (115) 93 01/13/20 16:00 97.8 54 18 145/72 (96) 92 01/13/20 12:52 Room Air 01/13/20 12:00 97.7 55 18 137/70 (92) 92 01/13/20 09:00 Nasal Cannula 2.0 01/13/20 08:52 61 143/70 Intake and Output 01/13/20 01/14/20 19:00 07:00 Intake Total 700 ml Balance 700 ml Intake Oral 700 ml # Voids 4 2 # Bowel Movements 1 Objective 01/14/2020 pt eating breakfast; normal work of breathing on RA 01/13/2020 labs reviewed; well saturated on low flow oxygen 01/12/2020 pt sitting up in bed; saturating 96% on 3 lpm NC 01/11/2020 pt sitting up in bed; saturating 94% on 3 lpm NC 01/10/2020 labs reviewed; saturating 95% on 2 lpm NC; pt sitting up in bed 01/09/2020 Labs reviewed; saturating 95-97% on 3 lpm NC General Appearance: no acute distress HEENT: normocephalic, atraumatic Respiratory: chest wall non-tender Cardiovascular: regular rhythm, bradycardia Abdomen: soft, non tender, hernia - ventral, other - morbidly obese Extremities: other - edema in four extremities Laboratory Tests 01/14/20 05:20: Sodium Level 141, Potassium Level 3.6, Chloride Level 105, Carbon Dioxide Level 31, Anion Gap 6, Blood Urea Nitrogen 12, Creatinine 0.7, Estimat Glomerular Filtration Rate > 60, Glucose Level 117H, Calcium Level 8.5, Magnesium Level 2.1, Pro-B-Type Natriuretic Peptide 188H Current Medications Medications (Trade) Dose Ordered Sig/Pawel Route PRN Reason Start Time Stop Time Status Last Admin Dose Admin Amlodipine Besylate (Norvasc) 5 mg DAILY ORAL 01/12/20 18:30 02/11/20 18:29 01/13/20 08:52 Dexamethasone Sodium Phosphate (Decadron 4mg/ml vial) 6 mg DAILY IVP 01/09/20 09:00 01/17/20 08:59 01/13/20 08:51 Enoxaparin Sodium (Lovenox) 80 mg Q12HR SUBQ 01/09/20 09:00 04/08/20 08:59 01/13/20 21:01 Guaifenesin (Robitussin) 100 mg Q4H PRN ORAL For Cough 01/10/20 15:00 04/09/20 14:59 01/13/20 00:44 Hydralazine HCl (Apresoline) 25 mg Q6H PRN ORAL SBP above 150 01/12/20 02:45 04/11/20 02:44 01/13/20 20:59 Assessment/Plan Assessment/Plan 1. COVID-19 pneumonia. - On Decadron - Defer to ID regarding use of remdesivir 2. Bilateral pulmonary infiltrates. 3. Hypertension. - elevated; s/p hydralazine prn per cardio - on diuresis trial per cardio - She states no chest pain, weakness in extremities, SOB - Defer to cardio 4. DVT ppx - on Lovenox - venous duplex 01/09/2020 negative for DVT 5. Elevated LFT - AST 62 -> 67 -> 44 - ALT 80 -> 106 -> 101 clear for discharge from pulmonology stand point of view dc planning - pt requests her ventral hernia to be taken care of post discharge- management per primary MD The care for this patient was discussed with my supervising physician Time spent for this case was approximately 31 minutes The patient was seen and examined at bedside and all new and available data was reviewed in the patients chart. I agree with the above findings, impression, and plan. (Patient was seen earlier today. Signature timestamp does not reflect patient encounter time) Pawel Santacruz MD Jan 14, 2020 08:21 Jj Valerio MD Jan 16, 2020 17:48
--- NOTE | 2020-01-14 08:41 | NUR ---
NURSE NOTES: Patient AAOX3, stable, shows no signs of respiratory distress, no pain. 96% on 2 L of NC. Bed in lowest position and locked. Call light within reach. Will continue to monitor. Report received from CRISTIANA Au
[2020-01-14] MEDS: Enoxaparin 80mg Inj SUBQ SCH (09:09)
[2020-01-14] MEDS: HydrALAZINE 25mg tab ORAL PRN (09:12)
--- NOTE | 2020-01-14 11:46 | Infectious Diseases Prog Note ---
Assessment/Plan Assessment/Plan antibiotics : none A 1. COVID 19 pneumonia on room air, O2 92 % saturation s/p remdesivir 2. hypertension 3. obesity 4. ventral hernia P 1. continue dexamethsone day 7 2. continue isolation Subjective Constitutional: Denies: fever, chills Respiratory: Reports: shortness of breath - less, dry cough - less Gastrointestinal/Abdominal: Denies: nausea, vomiting, diarrhea Musculoskeletal: Reports: pain - in back Allergies: Coded Allergies: No Known Allergies (Unverified , 07/20/17) Objective Last 24 Hour Vital Signs Date Time Temp Pulse Resp B/P (MAP) Pulse Ox O2 Delivery O2 Flow Rate FiO2 01/14/20 09:12 156/88 01/14/20 09:08 61 156/88 01/14/20 09:00 Room Air 01/14/20 08:00 97.9 61 20 156/88 (110) 97 01/14/20 04:00 97.5 54 18 148/70 (96) 94 01/14/20 00:00 97.7 54 18 166/80 (108) 93 01/13/20 21:00 Room Air 01/13/20 20:59 157/95 01/13/20 20:00 98.1 63 18 157/95 (115) 93 01/13/20 16:00 97.8 54 18 145/72 (96) 92 01/13/20 12:52 Room Air 01/13/20 12:00 97.7 55 18 137/70 (92) 92 Height (Feet): 5 Height (Inches): 5.00 Weight (Pounds): 380 Laboratory Tests Test 01/14/20 05:20 Sodium Level 141 MMOL/L (136-145) Potassium Level 3.6 MMOL/L (3.5-5.1) Chloride Level 105 MMOL/L (98-107) Carbon Dioxide Level 31 MMOL/L (21-32) Anion Gap 6 mmol/L (5-15) Blood Urea Nitrogen 12 mg/dL (7-18) Creatinine 0.7 MG/DL (0.55-1.30) Estimat Glomerular Filtration Rate > 60 mL/min (>60) Glucose Level 117 MG/DL (74-106) H Calcium Level 8.5 MG/DL (8.5-10.1) Magnesium Level 2.1 MG/DL (1.8-2.4) Pro-B-Type Natriuretic Peptide 188 pg/mL (0-125) H Current Medications Medications (Trade) Dose Ordered Sig/Pawel Route PRN Reason Start Time Stop Time Status Last Admin Dose Admin Amlodipine Besylate (Norvasc) 5 mg DAILY ORAL 01/12/20 18:30 02/11/20 18:29 01/14/20 09:08 Dexamethasone Sodium Phosphate (Decadron 4mg/ml vial) 6 mg DAILY IVP 01/09/20 09:00 01/17/20 08:59 01/14/20 09:08 Enoxaparin Sodium (Lovenox) 80 mg Q12HR SUBQ 01/09/20 09:00 04/08/20 08:59 01/14/20 09:09 Guaifenesin (Robitussin) 100 mg Q4H PRN ORAL For Cough 01/10/20 15:00 04/09/20 14:59 01/13/20 00:44 Hydralazine HCl (Apresoline) 25 mg Q6H PRN ORAL SBP above 150 01/12/20 02:45 04/11/20 02:44 01/14/20 09:12 Eric Bergman MD Jan 14, 2020 11:46
[2020-01-14 12:00] VITALS: BP 156/90
--- NOTE | 2020-01-14 13:40 | NUR ---
NURSE NOTES: patient was discharged to home via son's car. stable. no respiratory distress on room air. no pain at this time. checked and counted belongings with patient. provided dc packet. Dr. Moses ordered new discharge medications. Patient will picker tender helper medications at her pharmacy. removed IV and ID band. ambulatory. given new mask. patient left unit escorted by Danelle,Charge nurse.
--- NOTE | 2020-01-15 09:30 | Discharge Summary ---
Discharge Summary Discharge Summary _ DATE OF ADMISSION: 01/08/2020 DATE OF DISCHARGE: 01/14/2020 DISCHARGED BY: REASON FOR ADMISSION: 54 years old female with past medical history of hypertension, osteoarthritis, abdominal wall hernia, presented with two weeks of progressive shortness of breath, dry cough and generalized malaise. Patient denied fever or chills. In emergency department patient was found to be hypoxic. Rapid COVID-19 was positive. Chest x-ray revealed cardiomegaly with mild perihilar venous congestion. Laboratory work-up revealed no leukocytosis ,stable hemoglobin, hematocrit and platelet count. Stable electrolytes and renal parameters. Troponin negative. EKG revealed sinus rhythm no acute ischemic changes.. CRP 9.5, LDH 316, ferritin 152, D-dimer 0.96. Urinalysis revealed no evidence of UTI. Patient admitted for COVID-19 pneumonia and hypoxia. CONSULTANTS: pulmonary Dr. Teodoro HOPKINS specialist Dr. Bergman HOSPITAL COURSE: Patient admitted to medical surgical floor to isolation room. Supplemental oxygen provided and titrated to keep pulse oximetry above 92%. Mechanical Unit Repairer followed. Patient started on IV steroids and remdesivir. Patient was on full anticoagulation with Lovenox. Volumes were closely monitored. Patient was followed-up with a chest x-ray. Venous duplex bilateral lower extremity revealed no evidence of acute DVT. Blood sugar was closely monitored . Antitussive provided as needed. S Patient was able to wean off the oxygen. Blood pressure remained elevated. Spot diuresis provided. Volumes were closely monitored. Blood pressure improved. Noted elevated LFT , which trended down , likely due to Covid infection. Patient clinically stabilized and was ready for discharge . Continue isolation at home to complete the recommended requirement for isolation. FINAL DIAGNOSES: COVID-19 pneumonia Hypoxia Obesity Steroid-induced hyperglycemia Hypertension with elevated BP range Elevated LFT Asymptomatic sinus bradycardia DISCHARGE MEDICATIONS: See Medication Reconciliation list. DISCHARGE INSTRUCTIONS: Patient was discharged home. Follow-up with her primary care provider in 1 week. I have been assigned to dictate discharge summary for this account. I was not involved in the patient's management. Rosemary Shea NP Jan 15, 2020 09:30
--- NOTE | 2020-01-15 11:18 | NUR ---
INSURANCE DC SUMMARY/INSTRUCTIONS FAXED TO [facility] T: [phone] F: [phone]
== END 2020-01-14 13:40 | disposition home or self-care (01) | DRG 177 ==
LOC: EMR 23:40 → 4E 01-08 01:35 → EDBEDREQ 01-08 02:32
DX: U07.1 COVID-19 (principal); J12.89 Other viral pneumonia; Z68.44 Body mass index [BMI] 60.0-69.9, adult; E66.01 Morbid (severe) obesity due to excess calories; R73.9 Hyperglycemia, unspecified; T38.0X5A Adverse effect of glucocorticoids and synthetic analogues, initial encounter; I10 Essential (primary) hypertension; M19.90 Unspecified osteoarthritis, unspecified site; K43.9 Ventral hernia without obstruction or gangrene; R09.02 Hypoxemia; R79.89 Other specified abnormal findings of blood chemistry; R00.1 Bradycardia, unspecified
CPT/HCPCS: 36415; 71045; 80048; 80053; 81003; 82248; 82550; 82728; 83605; 83615; 83690; 83735; 83880; 84484; 85007; 85025; 85379; 85610; 85730; 86140; 87040; 93005; 93970; 96365; 96367; 96375; 99285; J3490; J8499; U0002